=== PATIENT | female | born 1995 | race Caucasian/White ===

== ENCOUNTER → 2020-06-19 08:45 | Outpatient (CLI) | payer SELFPAY | LOC: LAB 08:46 | PROVIDERS: Visit Provider Nurse Practitioner Obstetrics & Gynecology | DX: Z34.90 Encounter for supervision of normal pregnancy, unspecified, unspecified trimester (principal) | CPT/HCPCS: 36415; 84702 ==

== ENCOUNTER → 2020-07-01 10:05 | Outpatient (CLI) | payer OTHER, SELFPAY ==
[2020-07-01 10:35] LABS: Basophils % 0.1 % (0.1-2.0); Eosinophils # 0.1 K/mm3 (0.0-0.4); Eosinophils % 1.3 % (0.1-12.0); Hematocrit 38.5 % (37.0-47.0); Hemoglobin 13.2 g/dL (12.2-16.2); Lymphocytes # 1.9 K/mm3 (0.7-4.5); Lymphocytes % 18.2 % (10-50); Mean Corpuscular HGB Conc 34.2 g/dL (31.8-35.4); Mean Corpuscular Hemoglobin 28.9 pg (27.0-31.2); Mean Corpuscular Volume 84.6 fl (81-99); Mean Platelet Volume 8.1 fl (7.4-10.4); Monocytes # 0.4 K/mm3 (0.1-1.0); Monocytes % 3.7 % (1.7-9.3); Neutrophils # 7.9 K/mm3 (1.8-7.8); Neutrophils % 76.7 % (37.0-80.0); Platelet Count 292 K/mm3 (142-424); Red Blood Count 4.56 M/mm3 (4.20-5.40); Red Cell Distribution Width 13.1 % (11.5-17.5); White Blood Count 10.3 K/mm3 (4.8-10.8)
[2020-07-02 13:54] LABS: HIV Screen 4th Generation wRfx Non Reactive (Non Reactive); Hepatitis B Surface Antigen Negative (Negative); Hepatitis C Antibody <0.1 s/co ratio (0.0-0.9); Rubella Antibodies, IgG 0.99 index (Immune >0.99)
== END ==
PROVIDERS: Visit Provider Nurse Practitioner Obstetrics & Gynecology
DX: Z34.90 Encounter for supervision of normal pregnancy, unspecified, unspecified trimester (principal)
CPT/HCPCS: 36415; 85025; 86592; 86703; 86762; 86850; 87340; 87380; G0432

== ENCOUNTER → 2020-07-08 13:31 | Outpatient (CLI) | payer OTHER, SELFPAY ==
--- NOTE | 2020-07-08 13:31 | US_ITS ---
PROCEDURE: US OB <= 14 WEEKS FETUS CLINICAL INDICATION: for dates Evaluate gestational age COMPARISON: No exams were available for comparison FINDINGS: An intrauterine gestational sac is present with a pole with a crown-rump length of 4.83cm correlating to gestational age of 11weeks 4days. heart tones are present with an FHR of 170bpm. Yolk sac is noted. Unremarkable adnexa IMPRESSION: Live IUP at 11 weeks 4 days. Estimated due date by Ultrasound is 01/23/2021 Dictated by: Prem Gray MD 07/09/2020 13:29 Prem Gray MD in [facility] 07/09/2020 13:29
== END ==
PROVIDERS: PCP Nurse Practitioner Family; Visit Provider Nurse Practitioner Obstetrics & Gynecology
DX: Z34.90 Encounter for supervision of normal pregnancy, unspecified, unspecified trimester (principal)
CPT/HCPCS: 76801

== ENCOUNTER → 2020-07-14 14:33 | Outpatient (CLI) | payer OTHER, SELFPAY ==
[2020-07-17 09:04] LABS: Treponema pallidum Antibodies Reactive (Non Reactive)
== END ==
PROVIDERS: Visit Provider Nurse Practitioner Obstetrics & Gynecology
DX: A53.0 Latent syphilis, unspecified as early or late (principal)
CPT/HCPCS: 36415; 86780

== ENCOUNTER 2020-07-21 15:46 | Outpatient (CLI) | payer OTHER, SELFPAY ==
[2020-07-21 15:57] VITALS: BP 137/69; PULSE 94; RESP 18; TEMP 36.5; O2SAT 99
[2020-07-21 16:22] VITALS: BP 119/66; PULSE 84; RESP 18; O2SAT 99
== END 2020-07-21 16:23 | disposition home or self-care (01) ==
LOC: INF 15:46
PROVIDERS: PCP Nurse Practitioner Family; Visit Provider Nurse Practitioner Obstetrics & Gynecology
DX: Z34.90 Encounter for supervision of normal pregnancy, unspecified, unspecified trimester (principal); A53.0 Latent syphilis, unspecified as early or late
CPT/HCPCS: 96372; J0561

== ENCOUNTER 2020-07-28 15:34 | Outpatient (CLI) | payer OTHER, SELFPAY ==
[2020-07-28 15:45] VITALS: BP 127/61; PULSE 87; RESP 20; TEMP 36.6; O2SAT 97
== END 2020-07-28 16:05 | disposition home or self-care (01) ==
LOC: INF 15:34
PROVIDERS: Visit Provider Nurse Practitioner Obstetrics & Gynecology
DX: Z34.90 Encounter for supervision of normal pregnancy, unspecified, unspecified trimester (principal); A53.0 Latent syphilis, unspecified as early or late
CPT/HCPCS: 96372; J0561

== ENCOUNTER 2020-08-04 14:27 | Outpatient (CLI) | payer OTHER, SELFPAY ==
[2020-08-04 14:58] VITALS: BP 121/57; PULSE 99; RESP 18; TEMP 36.6; O2SAT 100
--- NOTE | 2020-08-04 15:30 | PC.NURSE ---
1458 Bicillin 1,200,000 units IM given L gluteus ninoska and 1,200,000 units IM given R gluteus nionska for total dose received of 2,400,000. Patient tolerated well/denies complaints. 1520 Patient denies complaints or problems. Tolerated well. No s/s of medication reaction or adverse reaction noted.
== END 2020-08-04 15:30 | disposition home or self-care (01) ==
LOC: INF 14:27
PROVIDERS: Visit Provider Nurse Practitioner Obstetrics & Gynecology
DX: Z34.90 Encounter for supervision of normal pregnancy, unspecified, unspecified trimester (principal); A53.0 Latent syphilis, unspecified as early or late
CPT/HCPCS: 96372; J0561

== ENCOUNTER → 2020-08-12 12:37 | Outpatient (CLI) | payer OTHER, SELFPAY ==
[2020-08-14 00:08] LABS: AFP Value 18.6 ng/mL (.); DIA MoM 2.22 (.); DIA Value 305.44 pg/mL (.); DSR (Second Trimester) 1 IN 606 (.); Gest. Age on Collection Date 17.4 WEEKS (.); Maternal Age At EDD 25.7 yr (.); OSBR Risk 1 IN 10000 (.); Results Report (.); hCG MoM 0.74 (.); hCG Value 19027 mIU/mL (.); uE3 MoM 0.39 (.); uE3 Value 0.47 ng/mL (.)
[2020-08-14 11:01] LABS: Gestat. Age Based On EDD (.)
== END ==
PROVIDERS: Visit Provider Nurse Practitioner Obstetrics & Gynecology
DX: Z34.90 Encounter for supervision of normal pregnancy, unspecified, unspecified trimester (principal)
CPT/HCPCS: 36415; 82106

== ENCOUNTER → 2020-09-01 13:43 | Outpatient (CLI) | payer OTHER, SELFPAY ==
--- NOTE | 2020-09-01 13:43 | US_ITS ---
PROCEDURE: US OB /MATERNAL DETAIL Referring Doctor: Rock Josh Patient Age:25Y CLINICAL INDICATION: US OB COMPLETE-20 Week Anatomy Scan COMPARISON: US US OB 07/08/2020.. At which time CRL = 11 weeks 5 days FINDINGS: Single viable intrauterine gestation. Currently in breech position. Placenta: Fundalplacenta wraps posterior to anterior grade 1. There is average amount fluid. The cervix appears satisfactory. Closed and measuring 4.7 in length. Complete survey performed and was unremarkable on the submitted images as in PACS. No discrete anomalies identified on survey imaging by technologist. Active fetus. Three-vessel cord with satisfactory umbilical cord insertion. 4- chamber heart noted. Aortic arch& LVOT image Survey of brain & ventricles Unremarkable. Face and neck survey unremarkable. Diaphragm and chest views unremarkable. Abdomen: Both kidneys noted and unremarkable. Stomach noted and satisfactory. Spine: Survey of the spine satisfactory with no anomalies identified nor imaged. Both arms and legs noted. Appears to be a female fetus Amniotic Fluid: Adequate. Maternal adnexa: No significant findings. Measurements: Average ultrasound age 19weeks 3days. Gestational Age 19weeks 3days Estimated due date by ultrasound age 0501/23/2021. Estimated weight 290ggrams. BPD = 19 week 3 day OFD = 19 week 3 day HC = 18 week 5 day AC = 19 week 4 day. FL = 19 week 4 day Growth Percentile= 38Percent% Heart Rate = 158bpm Cerebellum = 19 week 2 day.. Nuchal fold 1.87 mm Humerus = 19 week 4 day HC/AC is 1.11 CI is 0.8 FL/BPD is 0.69 FL/AC is 0.22 IMPRESSION: Single viable intrauterine gestation; Currently in breech position . Fundal placenta wraps posterior to anterior. Average ultrasound age = 19 weeks 3 day Estimated due date by ultrasound age 0501/23/2021 Anatomical survey-unremarkable/WNL. Active fetus Dictated by: Javed Alexis MD 09/03/2020 12:05 Javed Alexis MD in [facility] 09/03/2020 12:05
== END ==
PROVIDERS: PCP Nurse Practitioner Family; Visit Provider Nurse Practitioner Obstetrics & Gynecology
DX: Z36.0 Encounter for antenatal screening for chromosomal anomalies (principal)
CPT/HCPCS: 76811

== ENCOUNTER → 2020-10-28 10:00 | Outpatient (CLI) | payer OTHER, SELFPAY ==
[2020-10-28 12:47] LABS: Glucose 1 Hour 134 mg/dL (74-100); Glucose,Fasting 93 mg/dl (74-100)
[2020-10-29 14:33] LABS: Rapid Plasma Reagin Ab Titer Non Reactive (NonRea<1:1)
== END ==
PROVIDERS: Visit Provider Nurse Practitioner Obstetrics & Gynecology
DX: Z34.90 Encounter for supervision of normal pregnancy, unspecified, unspecified trimester (principal); Z72.51 High risk heterosexual behavior
CPT/HCPCS: 36415; 82951; 86592

== ENCOUNTER 2020-11-09 17:02 | Outpatient (CLI) | payer OTHER, SELFPAY ==
[2020-11-09 17:17] VITALS: BMI 34.2
[2020-11-09 17:30] LABS: Microscopic, Urine URINE MICROSCOPIC (MICROSCOPIC)
[2020-11-09 17:31] LABS: Appearance,Urine CLEAR (Clear); Bilirubin,Urine Negative (Negative); Blood, Urine Negative (Negative); Color,Urine YELLOW (Yellow); Glucose,Urine (UA) Negative (Negative); Ketones,Urine Negative (Negative); Leukocyte Esterase,Urine Negative (Negative); Nitrate,Urine Negative (Negative); Protein,Urine Negative (Negative); Specific Gravity, Urine >= 1.030 (1.005-1.030); Urobilinogen,Urine 0.2 EU/dl (0.2)
[2020-11-09 17:35] LABS: Squamous Epithelial Cell,Urine 20-50 #/hpf (0-5); WBC,Urine Occasional #/hpf (0-3)
[2020-11-09 17:37] VITALS: BP 119/70; PULSE 100; RESP 16; TEMP 36.9; O2SAT 98; BMI 34.2
[2020-11-09 17:43] LABS: Barbiturates Screen,Urine Negative ng/ml (<200); Benzodiazepines Screen,Urine Negative ng/ml (<200)
[2020-11-09 17:44] LABS: Amphetamine/Metha Screen,Urine Negative ng/ml (<1000); Cannabinoid Screen,Urine Negative ng/ml (<50)
[2020-11-09 17:45] LABS: Cocaine Screen,Urine Negative ng/ml (<300)
[2020-11-09 17:46] LABS: Methadone Screen,Urine Negative ng/ml (<300)
[2020-11-09 17:47] LABS: Opiate Screen,Urine Negative ng/ml (<300); Phencyclidine Screen,Urine Negative ng/ml (<25)
== END 2020-11-09 18:21 | disposition home or self-care (01) ==
LOC: OBOUT 17:05 → OB 17:07
PROVIDERS: PCP Nurse Practitioner Family; Visit Provider Obstetrics & Gynecology
DX: O36.8130 Decreased fetal movements, third trimester, not applicable or unspecified (principal); Z3A.30 30 weeks gestation of pregnancy; W19.XXXA Unspecified fall, initial encounter
CPT/HCPCS: 59025; 80305; 81001; G0463

== ENCOUNTER → 2020-12-24 17:10 | Outpatient (CLI) | payer OTHER, SELFPAY | PROVIDERS: Visit Provider Nurse Practitioner Obstetrics & Gynecology | DX: Z34.90 Encounter for supervision of normal pregnancy, unspecified, unspecified trimester (principal) | CPT/HCPCS: 86403 ==

== ENCOUNTER → 2020-12-30 13:03 | Outpatient (CLI) | payer OTHER, SELFPAY ==
--- NOTE | 2020-12-30 13:03 | US_ITS ---
PROCEDURE: US OB BIOPHYSICAL PROFILE CLINICAL INDICATION: Check Positioning , LGA, Hx of Lg Baby TECHNIQUE: Transabdominal FINDINGS: The following parameters are obtained: Fetus is in breech presentation. Average ultrasound age is Average 36weeks 3days Estimated due date by ultrasound is 01/24/2021. Estimated weight is 2,928g. This is 49th percentile BPD: 36weeks 6days OFD: 36weeks 6days HC: 36 weeks 6 days AC: 36 weeks 3 days FL: 36 weeks 4 days heart rate: 152bpm bpm. HC/AC: 0.98 Cephalic index: 0.81 FL/BPD: 0.79 FL/AC: 0.22 Amniotic fluid index: 18.11cm Qualitative AFV: 2 breathing movements: 2 Gross body movements: 2 Tone: 2 Biophysical profile score: 8 No obvious anomalies evident. Placenta: The placenta is anterior and high and grade 3 Cervix: Closed at 3 cm IMPRESSION: Single live fetus in breech presentation with an average ultrasound age of 36 weeks 3 days with an estimated weight of 2928 g which is 49th percentile. All parameters correlate. CHERYL normal at 18 cm. BPD 8 of 8 Dictated by: Prem Gray MD 12/30/2020 17:16 Prem Gray MD in [facility] 12/30/2020 17:16
== END ==
PROVIDERS: PCP Nurse Practitioner Family; Visit Provider Nurse Practitioner Obstetrics & Gynecology
DX: O32.1XX0 Maternal care for breech presentation, not applicable or unspecified (principal); O36.63X1 Maternal care for excessive fetal growth, third trimester, fetus 1
CPT/HCPCS: 76816; 76819

== ENCOUNTER → 2021-01-11 09:43 | Outpatient (CLI) | payer OTHER, SELFPAY ==
[2021-01-11 10:48] LABS: Chloride 107 mmol/L (98-107)
[2021-01-11 10:49] LABS: Potassium 4.1 mmoL/L (3.5-5.1); Sodium 135 mmol/L (136-145)
[2021-01-11 10:51] LABS: Blood Urea Nitrogen 8 mg/dl (7-17); Estimated Glomerular Filt Rate 150 ml/min (>60); GFR (African American) 182 ML/MIN (>60)
[2021-01-11 10:52] LABS: Anion Gap 11.1 mEq/L (5-15); Calcium 9.5 mg/dl (8.4-10.2); Carbon Dioxide 21 mmol/L (22.0-30.0); Glucose 81 mg/dl (74-100)
[2021-01-11 10:56] LABS: Basophils % 0.3 % (0.1-2.0); Eosinophils # 0.2 K/mm3 (0.0-0.4); Eosinophils % 1.5 % (0.1-12.0); Hematocrit 36.8 % (37.0-47.0); Hemoglobin 11.8 g/dL (12.2-16.2); Lymphocytes # 2.4 K/mm3 (0.7-4.5); Mean Corpuscular HGB Conc 31.9 g/dL (31.8-35.4); Mean Corpuscular Hemoglobin 28.5 pg (27.0-31.2); Mean Corpuscular Volume 89.3 fl (81-99); Mean Platelet Volume 8.6 fl (7.4-10.4); Monocytes # 0.7 K/mm3 (0.1-1.0); Monocytes % 5.4 % (1.7-9.3); Neutrophils # 9.3 K/mm3 (1.8-7.8); Neutrophils % 73.8 % (37.0-80.0); Platelet Count 324 K/mm3 (142-424); Red Blood Count 4.12 M/mm3 (4.20-5.40); Red Cell Distribution Width 14.3 % (11.5-17.5); White Blood Count 12.7 K/mm3 (4.8-10.8)
== END ==
PROVIDERS: PCP Nurse Practitioner Family; Visit Provider Nurse Practitioner Obstetrics & Gynecology
DX: Z34.90 Encounter for supervision of normal pregnancy, unspecified, unspecified trimester (principal)
CPT/HCPCS: 36415; 80048; 85025; U0003

== ENCOUNTER 2021-01-12 05:04 | Inpatient (IN) | payer OTHER, SELFPAY ==
[2021-01-12] VITALS (25 sets, daily range): BP systolic 97–149; BP diastolic 55–94; PULSE 83–114; RESP 16–18; TEMP 36.4–37.7; O2SAT 96–100; BMI 36.1
[2021-01-12 05:57] LABS: Microscopic, Urine URINE MICROSCOPIC (MICROSCOPIC)
[2021-01-12 06:00] LABS: Appearance,Urine SL CLOUDY (Clear); Bilirubin,Urine Negative (Negative); Blood, Urine Negative (Negative); Color,Urine YELLOW (Yellow); Glucose,Urine (UA) Negative (Negative); Ketones,Urine Negative (Negative); Leukocyte Esterase,Urine TRACE (Negative); Nitrate,Urine Negative (Negative); PH,Urine 7.5 (5.0-8.5); Protein,Urine TRACE (Negative); Urobilinogen,Urine 0.2 EU/dl (0.2)
[2021-01-12 06:08] LABS: Bacteria,Urine 2+ /lpf; Squamous Epithelial Cell,Urine TNTC #/hpf (0-5)
[2021-01-12 06:15] LABS: Amphetamine/Metha Screen,Urine Negative ng/ml (<1000)
[2021-01-12 06:16] LABS: Barbiturates Screen,Urine Negative ng/ml (<200); Benzodiazepines Screen,Urine Negative ng/ml (<200)
[2021-01-12 06:17] LABS: Cannabinoid Screen,Urine Negative ng/ml (<50)
[2021-01-12 06:18] LABS: Cocaine Screen,Urine Negative ng/ml (<300)
[2021-01-12 06:19] LABS: Methadone Screen,Urine Negative ng/ml (<300); Opiate Screen,Urine Negative ng/ml (<300)
[2021-01-12 06:20] LABS: Phencyclidine Screen,Urine Negative ng/ml (<25)
--- NOTE | 2021-01-12 07:27 | HMH.OBAPHP ---
OB - H&P: HPI Antepartum - History of Present Illness Chief complaint: Term , breech presentation History of present illness: She is a 25-year-old 2 para 1 at 39+ weeks gestational age. She is known to be in the breech presentation and as result of that is offered primary lower segment transverse section at term. - History of Present Criteria for establishing EDC:: LMP confirmed by 1st trimester US care: good care Ultrasounds: normal 1st trimester US, normal mid trimester US Obstetrical complications: none Medical complications: none - Labs Blood type: A (+) positive Rubella: nonimmune RPR/VDRL: nonreactive GBS status: negative HBsAG: negative [facility] History I have reviewed the patient's past medical history: Yes Medical History: Denies:: Cancer, Diabetes Mellitus Type 1, Diabetes Mellitus Type 2 *Have you ever received a pneumonia vaccine?: No *Have you received a flu vaccine this season?: Yes Laterality Cases: Bilateral: Tonsillectomy Other Surgeries: Yes: Other. No: Amputation: No Fractures: No - *Social History Smoking Status: Current every day smoker Tobacco Type: cigarettes # Packs/Day (cigarettes): 1 Alcohol Intake: never Alcohol Intake Frequency:: other Substance Use Type: marijuana *Occupational Status:: unemployed Housing: house Household Members: family *Travel in the last 8 weeks: None Family Hx:: Diabetes, Hypertension, Hyperlipidemia, Cancer Para: 1 Review of Systems - Review of Systems Review of systems:: pertinent systems reviewed and negative unless documented below Meds Home Medications Medication Instructions Recorded Confirmed Type pantoprazole 40 mg tablet,delayed 40 mg PO DAILY tab 07/14/20 01/08/21 History release PNV 153-FA 400 mcg-om3 35 mg-dha 1 tab PO DAILY #90 tab 07/29/20 01/08/21 Rx 25 mg-epa 5 mg-fish oil chew tablet fluoxetine 20 mg capsule 20 mg PO DAILY #30 cap 09/29/20 01/08/21 Rx famotidine 20 mg tablet 20 mg PO DAILY #30 tab 10/09/20 01/08/21 Rx Ferrous Sulfate 325 mg PO DAILY 11/09/20 01/08/21 History Promethazine HCl See Rx Instructions .ROUTE .COMPLEX 11/09/20 01/08/21 History hydrocortisone 1 %-pramoxine 1 % 1 applic CA QID #10 g 11/11/20 01/08/21 Rx rectal foam cetirizine 10 mg tablet 10 mg PO tab 11/12/20 01/08/21 History doxylamine 10 mg-pyridoxine (vit tab PO 12/24/20 01/08/21 History B6) 10 mg tablet,delayed release Allergies Allergy/AdvReac Type Severity Reaction Status Date / Time orange Allergy Intermediate mouth sores Verified 01/08/21 11:30 Penicillins Allergy Intermediate mouth sores Verified 01/08/21 11:30 OB - H&P: Exam - Physical Exam Vital signs: Temp Pulse Resp BP Pulse Ox 98.2 F 104 H 18 116/72 98 01/12/21 06:10 01/12/21 06:10 01/12/21 06:10 01/12/21 06:10 01/12/21 06:10 - Constitutional no acute distress - Routine HEENT Exam Head: Present: normocephalic Eye: Present: EOMI, PERRL ENT: Present: mucous membranes moist - Routine Neck Exam Present: supple, full ROM - Routine Respiratory Exam Absent: accessory muscle use (good air entry bilaterally), respiratory distress, wheezes, crackles - Routine Cardiovascular Exam Present: RRR. Absent: murmur - Routine Abdominal Exam Present: soft, normoactive bowel sounds. Absent: tenderness, distended, guarding - Routine Rectal Exam Patient deferred: visual exam, digital exam - Routine Exam Patient deferred: external exam, groin exam, perineal exam - Routine Extremities Exam Present: full ROM. Absent: cyanosis, edema - Routine Skin Exam Present: intact. Absent: cyanosis - Routine Neurological Exam Present: alert, oriented X3 - Routine Psychiatric Exam Present: normal affect OB - Results - Labs Labs: Urine 01/12/21 Range/Units 05:20 Urine Color Yellow (Yellow) Urine Appearance Sl cloudy (Clear) Urine pH 7.5 (5.0-8.5) Ur Specific Gr
[2021-01-12 08:02] LABS: Cord Blood PH 7.38 (7.35-7.45)
--- NOTE | 2021-01-12 08:39 | HMH.OPNOTE ---
Date of procedure: 01/12/21 Pre-op Diagnosis:: Term , breech presentation Post-op Diagnosis:: Term , breech presentation Procedure performed:: Primary lower segment transverse section Surgeon:: Josh Rock MD SLEDGER:: Mason Wetzel Anesthesia: spinal Estimated blood loss (mL): 2,170 Clinical Note:: She is a 25-year-old 2 para 1 at 39+ weeks gestational age. She was known to have a baby in the breech presentation and as result of that was offered primary lower segment transverse section at term. Operative findings:: She delivered a liveborn female child at 7:48 AM on the morning of January 12, 2021. The baby had Apgars of 8 at 1 minute and 9 at 5 minutes. pH was 7.38. She had quite large vessels in the lower segment and the lower segment was not fully formed. As result of that she lost more blood than normal. Ovaries and tubes appeared normal. Operative note:: She was taken to the operating room where spinal anesthesia was found be adequate. She was prepped and draped in normal sterile fashion in the supine position with a leftward tilt. A Kelly catheter was in the bladder. A Pfannenstiel skin incision was made with knife then carried through to the underlying layer of fascia with cautery. The fascia was opened in the midline with cautery and extended laterally using [place] scissors. Evette clamps were applied to the superior aspect of the fascial incision which was tented up and the underlying rectus muscles dissected off using cautery. The [place] clamps were then applied to the inferior aspect of the fascial incision which in a similar fashion was tented up and the underlying rectus muscles dissected off using cautery. The rectus muscles were then in the midline, the peritoneum identified, and entered sharply with Metzenbaum scissors. This incision was then extended superiorly and inferiorly with cautery. We had good visualization of the bladder inferiorly. The bladder peritoneum was then opened in the midline and extended laterally using Metzenbaum scissors. A bladder flap was created digitally. Transverse incision was made through the uterine muscle to the amnion. This incision was then extended laterally using fingers traction. The amnion was entered sharply with knife. There was clear amniotic fluid. The infant's breech was then delivered atraumatically. This was followed by the anterior shoulder and the rest of the 's body atraumatically. The oropharynx and nasopharynx were bulb suctioned. The infant was then handed off to Dr. Hernandez who assigned Apgars of 9 at 1 minute and 9 at 5 minutes. We then obtained cord blood as well as cord pH. The pH was 7.38. Using gentle traction on the cord and countertraction on the fundus I was able to easily deliver the placenta intact. It had a normal three-vessel cord. The uterus was then cleared of clots and debris . The uterine incision was then closed using running 0 Vicryl suture in a locked fashion. A second layer of the same suture was used to imbricate the first layer. The bladder peritoneum was then closed using running 2-0 Vicryl suture in a locked fashion. There was some bleeding along the edge of the uterine incision and interrupted [id number] sutures were used here to obtain excellent hemostasis the gutters and cul-de-sac were then cleared of clots and debris . Once again hemostasis was assured. The uterus was then returned to the abdominal cavity. The peritoneum was grasped with Suad clamps and closed using running 2-0 Vicryl suture. The rectus muscles were then reapproximated using running 0 Vicryl suture. The fascia was closed using running #1 Vicryl suture. The subcutaneous tissues were then irrigated with warm water followed by closure Irving's fascia using running 2-0 Monocryl suture. The skin was closed with running subcuticular 2 oh strata fix suture.. I then cleaned the skin with Hibiclens. Sterile dressings were applied.
--- NOTE | 2021-01-12 08:43 | P.PN_ITS ---
[facility] Anesthesia Checklist - Patient Identification Patient Identification: Arm Band - Structural Data Admitted From: Inpatient Planned Operative Procedure/s: Primary C/S Consent for Planned Operative Procedure(s) Verified: Yes Verified Documents: Surgical Consent, History and Physical - NPO Status Verified Time NPO: 00:00 - Additional verifications Anesthesia Reactions: No - Airway Assessment C-Spine Mobility Assessed: Yes (mp2) TMJ Mobility Assessed: Yes Dentition: Good Dentition - Neurological Assessment Level of Consciousness: Awake, Alert - Anesthesia Plan Anesthesia Risk discussed: Yes Anesthesia Plan: Verified ASA Class: II Anesthesia Type: Spinal (with TAP Block) [facility] History I have reviewed the patient's past medical history: Yes Medical History: Denies:: Cancer, Diabetes Mellitus Type 1, Diabetes Mellitus Type 2 *Have you ever received a pneumonia vaccine?: No *Have you received a flu vaccine this season?: Yes Anesthesia experience/problems:: nac Laterality Cases: Bilateral: Tonsillectomy Other Surgeries: Yes: Other. No: Amputation: No Fractures: No - *Social History Smoking Status: Current every day smoker Tobacco Type: cigarettes # Packs/Day (cigarettes): 1 Alcohol Intake: never Alcohol Intake Frequency:: other Substance Use Type: marijuana *Occupational Status:: unemployed Housing: house Household Members: family *Travel in the last 8 weeks: None Family Hx:: Diabetes, Hypertension, Hyperlipidemia, Cancer Para: 1
--- NOTE | 2021-01-12 08:44 | HMH.ANESI ---
[facility] Anesthesia Record Part I Intake, IV Amount: 2,000 Estimated blood loss (mL): 1,800 Urine output (mL): 200 Blood Pressure: 126/90 SaO2: 99 Pulse Rate: 112 Respiratory Rate: 16 Temperature: 99.4 F Patient is:: Drowsy, Stable Stable to PACU at:: 08:30
[2021-01-12 09:04] LABS: Microscopic,Cath URINE MICROSCOPIC (MICROSCOPIC)
[2021-01-12 09:32] LABS: Appearance,Urine/Cath CLEAR (Clear); Bilirubin,Cath Negative (Negative); Blood, Urine/Cath Negative (Negative); Color,Urine/Cath YELLOW (Yellow); Glucose,Urine/Cath (UA) Negative (Negative); Ketones,Urine/Cath Negative (Negative); Leukocyte Esterase,Cath Negative (Negative); Nitrate,Cath Negative (Negative); PH,Urine/Cath 7.5 (5.0-8.5); Protein,Urine/Cath Negative (Negative); Specific Gravity, Urine/Cath 1.015 (1.005-1.030); Urobilinogen,Cath 0.2 EU/dl (0.2)
--- NOTE | 2021-01-12 10:10 | P.PN_ITS ---
[facility] Anesthesia Record Part II Discharge Time: 09:20 Destination: Obstetric PACU nurse assessment reviewed?: Yes Patient Condition:: Good Anesthesia Complications:: None Swallowing reflex intact?: Yes Cyanosis?: No Blood Pressure: 120/69 Pulse Rate: 88 Temperature: 98.2 F Mental Status: Alert & Oriented Pain level:: 0 Nausea and/or vomitting:: None Intake, IV Amount: 0
[2021-01-12 10:20] LABS: Amorphous Sediment,Ur/Cath 1+ /lpf
--- NOTE | 2021-01-12 10:42 | HMH.PHAVTE ---
[facility] Pharmacy VTE Monitoring - Patient Demographics Admission date: 01/12/21 Report Date: 01/12/21 Time: 10:42 Allergies/Adverse Reactions: Patient Allergies orange Allergy (Intermediate, Verified 01/08/21 11:30) mouth sores Penicillins Allergy (Intermediate, Verified 01/08/21 11:30) mouth sores Height: 1.68 m Weight: 101.605 kg Patient Problems: Current Active Problems Breech presentation delivered (Acute) delivery delivered (Acute) - VTE Risk Clinical Trial Participant: No - Prophylaxis VTE Prophylaxis Ordered?: Yes Types of VTE Prophylaxis: IPCS Knee High Location of Applied Device: Bilateral Lower Extremeties
--- NOTE | 2021-01-12 10:53 | SUR.OPER ---
per dr cameron, quantitative blood loss protocol initiated, second 18g IV started, lab alerted to hold 2 units, handed off to continue protocol by NAINA RN in pacu.
[2021-01-12 11:39] LABS: Hematocrit 30.4 % (37.0-47.0); Hemoglobin 10.2 g/dL (12.2-16.2)
[2021-01-12 16:24] LABS: Hematocrit 29.3 % (37.0-47.0)
[2021-01-13] VITALS: BP 116/61; PULSE 86; RESP 17; TEMP 36.8; O2SAT 99
[2021-01-13 04:00] VITALS: BP 110/68; PULSE 89; RESP 18; TEMP 36.7; O2SAT 97
[2021-01-13 06:43] LABS: Basophils % 0.2 % (0.1-2.0); Eosinophils # 0.2 K/mm3 (0.0-0.4); Eosinophils % 1.4 % (0.1-12.0); Hematocrit 26.4 % (37.0-47.0); Lymphocytes # 2.3 K/mm3 (0.7-4.5); Mean Corpuscular Hemoglobin 30.1 pg (27.0-31.2); Mean Corpuscular Volume 88.5 fl (81-99); Monocytes # 0.6 K/mm3 (0.1-1.0); Monocytes % 5.4 % (1.7-9.3); Neutrophils # 8.4 K/mm3 (1.8-7.8); Platelet Count 294 K/mm3 (142-424); Red Blood Count 2.98 M/mm3 (4.20-5.40); Red Cell Distribution Width 14.7 % (11.5-17.5); White Blood Count 11.5 K/mm3 (4.8-10.8)
--- NOTE | 2021-01-13 08:55 | HMH.ACPN2 ---
Internal Medicine - PN: Subj *Date: 01/13/21 *Time: 08:55 Interval history: She is doing very well this morning. She is eating and drinking and ambulating. Her pain is well controlled with the T AP block. She is taking Tylenol and Toradol every 6 hours. She took a couple of oxycodones overnight but otherwise is doing well. I suspect most of her pain is related to visceral pain. Exam Vital signs and Labs for Last 24 Hours: Temp Pulse Resp BP Pulse Ox 98.1 F 89 18 110/68 97 01/13/21 04:00 01/13/21 04:00 01/13/21 04:00 01/13/21 04:00 01/13/21 04:00 Laboratory Results - last 24 hr 01/12/21 05:40: Blood Type A Positive, Antibody Screen Negative, Crossmatch (AHG) See Detail 01/12/21 07:30: Urine Color Yellow, Urine Appearance Clear, Urine pH 7.5, Ur Specific [place] 1.015, Urine Protein Negative, Urine Glucose (UA) Negative, Urine Ketones Negative, Urine Blood Negative, Urine Nitrate Negative, Urine Bilirubin Negative, Urine Urobilinogen 0.2, Ur Leukocyte Esterase Negative, Urine RBC 3-5, Urine WBC None, Ur Squamous Epith Cells 3-5, Urine Bacteria None 01/12/21 11:18: Hgb 10.2 L, Hct 30.4 L 01/12/21 16:12: Hgb 10.0 L, Hct 29.3 L 01/13/21 06:20: WBC 11.5 H, RBC 2.98 L D, Hgb 9.0 L, Hct 26.4 L, MCV 88.5, MCH 30.1, MCHC 34.0, RDW 14.7, Plt Count 294, MPV 9.0, Neut % (Auto) 73.0, Lymph % (Auto) 20.0, [place] % (Auto) 5.4, Eos % (Auto) 1.4, Baso % (Auto) 0.2, Neut # (Auto) 8.4 H, Lymph # (Auto) 2.3, [place] # (Auto) 0.6, Eos # (Auto) 0.2, Baso # (Auto) 0.0 I & O for Last 24 hours: Intake & Output 05/08/01/11/21 01/12/21 01/13/21 11:59 11:59 11:59 11:59 Intake Total 1999 Balance 1999 Weight 224 lb Microbiology Reports for the Last 24 Hours: Microbiology 01/12/21 05:20 Urine,Clean Catch Urine Culture - Preliminary NO GROWTH AFTER 24 HOURS - Constitutional no acute distress - *Routine HEENT Exam Head: Present: normocephalic Eye: Present: EOMI, PERRL ENT: Present: mucous membranes moist Assessment and Plan (1) Breech presentation delivered Status: Acute Category: Medical Code(s): O32.1XX0 - Maternal care for breech presentation, not applicable or unspecified (2) delivery delivered Status: Acute Category: Medical Code(s): O82 - Encounter for delivery without indication - Assessment and plan all Dx Assessment and Plan for all problems:: She is doing very well today. We will likely send her home tomorrow since her pain is so well controlled with a tap block we will continue with regular scheduled oral analgesics.
--- NOTE | 2021-01-13 14:15 | SW/DCPLANNER ---
RECEIVED REFERRAL ON THIS PATIENT STATING FATHER OF IS IN PENITENTIARY, ALSO SOME CONCERNS OVER THE LIVING SITUATION AND CIRCUMSTANCES... I WENT IN TO SEE PATIENT AND INFANT TODAY, INFANT WAS ASLEEP AND PATIENT WAS ON THE PHONE, HER MOTHER WAS AT BEDSIDE ON HER PHONE ALSO...SHE STATED SHE DELIVERED HER INFANT VIA .. SHE DELIVERED A BORN FEMALE AND BOTH PATIENT AND INFANT ARE DOING WELL.. PATIENT STATED SHE HAS A 5 YR OLD DAUGHTER AND SHE NAMED THIS ONE DIANE SUTTON THEY RESIDE IN [facility] WITH THE GRANDMOTHER AND THE PLAN IS TO RETURN BACK THERE ONCE DISCHARGED FROM THE HOSPITAL. HAD BEEN IN AND SAID SHE CAN DISCHARGE IN THE AM (TUE)...SHE HAS CHOSEN DR KING THE BABY'S DOCTOR, SHE DOES HAVE WIC AND WISHES TO USE HANDS, SHE STATED SHE HAD SPOKEN WITH THE HANDS COORDINATOR ON THE PHONE. SHE IS BOTTLE FEEDING AND SAID INFANT IS DOING WELL WITH THE FORMULA. SHE HAS A BASSINETT AND CRIB AND STATED SHE HAS DIAPERS, BOTTLE AND CLOTHING. AT THIS TIME THERE IS NO FATHER INVOLVED.. PATIENT HAS NO DRUG HISTORY TO OUR KNOWLEDGE. BOTH PATIENT AND INFANTS UDS WERE NEGATIVE.. NO ISSUES AT THIS TIME TO INVOLVE ANY INVESTIGATION...
[2021-01-14 08:00] VITALS: BP 112/67; PULSE 92; RESP 18; TEMP 36.9; O2SAT 98
--- NOTE | 2021-01-14 09:32 | HMH.OBDCSM ---
General - General Admission date:: 01/12/21 Discharge date: 01/14/21 HPI - History of Present Illness History of present illness: She is a 25-year-old 2 para 1 at 39 and 2 weeks gestational age. Her baby was in the breech presentation and as result of that she was admitted for primary lower segment transverse section. Hospital Course Hospital Course: On January 12, 2021 she underwent a primary lower segment transverse section and delivered a liveborn female child in the breech presentation. The baby weighed 7 pounds 11 ounces and had Apgars of 8 at 1 minute and 9 at 5 minutes. The age of 7. 3 8. She has done well postoperatively and did have a T AP block. Her pain is well controlled and she is only taken a few pain medicines. She has been taking [id number] analgesics regularly throughout her hospital stay. She has a positive blood, she is rubella nonimmune and will receive MMR. She is group B streptococcus negative. She is discharged home to follow-up with me in approximately 2 weeks time. She will continue with her vitamins and iron. She was given the usual structures with respect to limiting her activity, driving and sexual activity. She was given a prescription for Percocet 5/325 number 12 tablets. Her sewer pipe cleaner is Dr. Hernandez. Her condition on discharge is stable and improved. Rhogam Administration: Not Indicated Objective Vital signs: Temp Pulse Resp BP Pulse Ox 98.1 F 89 18 110/68 97 01/13/21 04:00 01/13/21 04:00 01/13/21 04:00 01/13/21 04:00 01/13/21 04:00 no acute distress - *Routine HEENT Exam Head: Present: normocephalic Eye: Present: EOMI, PERRL ENT: Present: mucous membranes moist Results Labs on day of discharge: Preliminary micro results at discharge 01/12/21 05:20 Urine Culture - Preliminary Urine,Clean Catch DS: Diagnosis - Discharge Diagnosis (1) Breech presentation delivered Status: Acute (2) delivery delivered Status: Acute Discharge Plan - Patient Discharge Instructions ACTIVITY: No heavy lifting DIET: continue same diet Additional Instructions: NOTHING IN VAGINA FOR 6 WEEKS NO HEAVY LIFTING OR STRENUOUS ACTIVITY NO DRIVING WHILE TAKING PAIN MEDICATION FOLLOW-UP WITH DR. ROCK ON Patient Instructions: Depression, Hemorrhage, DI for , Surgical Site Infection, [facility] Post Discharge Instructions, Preventing the Spread of Coronavirus Discharge Instructions - Follow up Plan Follow up with: Josh Rock MD [Staff Physician] - 01/26/21 11:00 am Disposition: Home, Self-Care Condition at discharge:: Improved Home Medications: Home Medications Medication Instructions Recorded Confirmed Type pantoprazole 40 mg tablet,delayed 40 mg PO DAILY tab 07/14/20 01/12/21 History release PNV 153-FA 400 mcg-om3 35 mg-dha 1 tab PO DAILY #90 tab 07/29/20 01/12/21 Rx 25 mg-epa 5 mg-fish oil chew tablet fluoxetine 20 mg capsule 20 mg PO DAILY #30 cap 09/29/20 01/12/21 Rx famotidine 20 mg tablet 20 mg PO DAILY #30 tab 10/09/20 01/12/21 Rx Ferrous Sulfate 325 mg PO DAILY 11/09/20 01/12/21 History Promethazine HCl See Rx Instructions .ROUTE .COMPLEX 11/09/20 01/12/21 History cetirizine 10 mg tablet 10 mg PO DAILY tab 11/12/20 01/12/21 History Prescriptions/Medication Reconciliation: Continued PNV 153-FA 400 mcg-om3 35 mg-dha 25 mg-epa 5 mg-fish oil chew tablet 1 tab PO DAILY #90 tab cetirizine 10 mg tablet 10 mg PO DAILY tab pantoprazole 40 mg tablet,delayed release 40 mg PO DAILY tab fluoxetine 20 mg capsule 20 mg PO DAILY #30 cap famotidine 20 mg tablet 20 mg PO DAILY #30 tab Promethazine HCl See Rx Instructions .ROUTE .COMPLEX Ferrous Sulfate 325 mg PO DAILY - Problem Reconciliation Problems Reviewed?: Yes
== END 2021-01-14 12:35 | disposition home or self-care (01) | DRG 788 ==
PROVIDERS: Admitting Provider Nurse Practitioner Obstetrics & Gynecology; PCP Nurse Practitioner Family; Visit Provider Nurse Practitioner Obstetrics & Gynecology
PROC: (CPT 59514; principal; 2021-01-12 07:30)
DX: O32.1XX0 Maternal care for breech presentation, not applicable or unspecified (principal); Z3A.39 39 weeks gestation of pregnancy; Z37.0 Single live birth; Z23 Encounter for immunization
CPT/HCPCS: 59514; 36415; 59025; 80048; 80305; 81001; 82800; 85014; 85018; 85025; 86850; 87086; 94761; C9290; G0283; J1956; J2405; U0003

== ENCOUNTER 2021-04-29 20:55 | Emergency (ER) | payer OTHER, SELFPAY ==
[2021-04-29 22:00] VITALS: BP 130/74; PULSE 96; RESP 18; TEMP 36.9; O2SAT 97; BMI 35.6
--- NOTE | 2021-04-29 22:12 | HMH.EDUTC ---
[facility] [place] Impression: UTI (urinary tract infection) Qualifiers: Urinary tract infection type: site unspecified Hematuria presence: with hematuria Qualified Code(s): N39.0 - Urinary tract infection, site not specified; R31.9 - Hematuria, unspecified Disposition: Home, Self-Care Condition on Discharge: Good Instructions: Urinary Tract Infection, DI for Urinary Tract Infection (UTI), Nitrofurantoin Additional Instructions: *Increase fluids. Water not Soda or Tea *Start antibiotic immediately and be sure to take as ordered for the FULL length of time although you should start to see improvement over the next 48 hours Be SURE to follow up anytime for new or worsening symptoms with your family doctor. AND in 48 hours for urine culture results with your family doctor, if you do not have a doctor then you may call back to the [facility] for urine culture results and further treatment. We do recommend that you choose and establish care with a Primary Care Physician. AND follow up with them in 10-14 days to repeat UA to ensure infection is resolved and blood no longer present *Be sure to let your PCP know that we sent urine cultures from the [facility] so they can follow up to ensure that you area the on the correct antibiotic Call your doctor office and make appointment for 48 hours (2 days from today) to follow up and get the results of your urine culture and further treatment Prescriptions: Nitrofurantoin Monohyd/M-Cryst [Macrobid 100 mg Capsule] 100 mg PO BID 7 Days #14 cap Transmission Status: Pending to [id number] Referrals: Renea Atwood PA [Primary Care Provider] - As needed Time of Disposition: 22:25 Medical Decision Making - Rene Inquiry Pt receiving controlled substance: No Rene was queried for this patient: No Vital Signs: 04/29/21 22:00 Temperature 98.4 F Temperature Source Oral Pulse Rate [Left] 96 H Respiratory Rate 18 Blood Pressure [Right Arm] 130/74 Blood Pressure Mean [Right Arm] 92 02 Sat by Pulse Oximetry 97 - Lab Data Lab results reviewed: Yes: I reviewed the patient's lab results. Medical Decision Narrative: Denies breast feeding [facility] [place] - General Stated complaint: Possible UTI Time Seen by Provider: 04/29/21 22:12 Mode of Arrival: Ambulatory Source of Information: Patient Limitations: No Limitations Description of Symptoms (Recalled from Triage Doc. by RN): pt c/o middle back pain and bilateral flank pain. pt is 3 months post HEENT Symptoms (Recalled from RN notes): No Resp Symptoms (Recalled from RN notes): No Skin Symptoms (Recalled from RN notes): No MS Symptoms (Recalled from RN notes): Yes (mid back and flank pain) Functional Status (Recalled from RN notes): na - History of Present Illness Provider Complaint: Patient states that she has been having achy like feeling in her lower back around her kidney area and feeling like she was urinating more frequently than usual State that she feels like she did when she had UTI in the past with achy like feeling in her back and side area - Related Data Home Medications Medication Instructions Recorded Confirmed pantoprazole 40 mg tablet,delayed 40 mg PO DAILY tab 07/14/20 02/24/21 release cetirizine 10 mg tablet 10 mg PO DAILY tab 11/12/20 02/24/21 Previous Rx's Medication Instructions Recorded PNV 153-FA 400 mcg-om3 35 mg-dha 1 tab PO DAILY #90 tab 07/29/20 25 mg-epa 5 mg-fish oil chew tablet fluoxetine 20 mg capsule 20 mg PO DAILY #30 cap 09/29/20 terconazole 0.8 % vaginal cream 5 g VAGINAL HS 3 Days #20 g 02/13/21 Nitrofurantoin Monohyd/M-Cryst 100 mg PO BID 7 Days #14 cap 04/29/21 [Macrobid 100 mg Capsule] Allergies Allergy/AdvReac Type Severity Reaction Status Date / Time orange Allergy Intermediate mouth sores Verified 02/24/21 10:41 Penicillins Allergy Intermediate mouth sores Verified 02/24/21 10:41 - Worker's Comp Is this a Worker's Comp case?: No H History
[2021-04-29 22:17] VITALS: BP 130/74; PULSE 96; RESP 18; TEMP 36.9
[2021-04-29 22:30] LABS: Apearance,Urine Clear (Clear); Bilirubin,Urine Negative (Negative); Blood, Urine Trace (Negative); Color,Urine Yellow (Yellow); Glucose,Urine (UA) Negative (Negative); Ketones,Urine Negative (Negative); Protein,Urine Negative (Negative); Specific Gravity, Urine 1.025 (1.005-1.030); UTC Leukocyte Esterase,Urine 1+ (Negative); UTC Nitrate,Urine Negative (Negative); Urobilinogen,Urine 0.2 EU/dl (0.2)
== END 2021-04-29 22:41 | disposition home or self-care (01) ==
PROVIDERS: Emergency Provider Nurse Practitioner; PCP Nurse Practitioner Family
DX: N30.00 Acute cystitis without hematuria (principal); Z87.891 Personal history of nicotine dependence
CPT/HCPCS: 81003; 87086; 87088; 87186; 99202; G0463

== ENCOUNTER 2021-05-19 19:41 | Emergency (ER) | payer OTHER, SELFPAY ==
[2021-05-19 20:30] VITALS: BP 134/66; PULSE 86; RESP 20; TEMP 36.7; O2SAT 99; BMI 36.7
--- NOTE | 2021-05-19 21:18 | HMH.EDUTC ---
[facility] [place] Clinical Impression: Exposure to COVID-19 virus Disposition: Home, Self-Care Condition on Discharge: Good Instructions: DI for COVID-19 (Suspected or Confirmed ), Preventing the Spread of Coronavirus Discharge Instructions Additional Instructions: Drink plenty of fluids. Take tylenol for pain or fever. Return if you begin to have difficulty breathing. Follow up with your regular doctor. GO TO THE ER FOR ANY WORSENING SYMPTOMS Quarantine until you know the results of your covid-19 test. If it is positive, the health department should call you and give you further instructions about your length of Quarantine and other things. Notify your school or workplace of your results and follow their instructions regarding return to work/school. Referrals: Renea Atwood PA [Primary Care Provider] - Time of Disposition: 21:18 Medical Decision Making - Medical Records Medical records reviewed: No: I reviewed the patient's medical records. - Rene Inquiry Pt receiving controlled substance: No Vital Signs: 05/19/21 20:30 05/19/21 21:24 Temperature 98.1 F 98.1 F Temperature Source Oral Pulse Rate 86 Pulse Rate [Right Brachial] 86 Respiratory Rate 20 20 Blood Pressure 134/66 Blood Pressure [Right Arm] 134/66 Blood Pressure Mean [Right Arm] 88 Blood Pressure Source [Right Arm] Automatic Cuff Blood Pressure Position [Right Arm] Sitting 02 Sat by Pulse Oximetry 99 Oxygen Delivery Method Room Air Orders (Tests/Meds): ORDERS Category Date Time Status Covid-19 Nasal PCR ([facility]) Routine Lab 05/19/21 20:40 Received [facility] [place]PI - General Stated complaint: covid test Time Seen by Provider: 05/19/21 21:18 Mode of Arrival: Ambulatory Source of Information: Patient Limitations: No Limitations Description of Symptoms (Recalled from Triage Doc. by RN): COVID TEST D/T EXPOSURE. DENIES SYMPTOMS HEENT Symptoms (Recalled from RN notes): No Resp Symptoms (Recalled from RN notes): No Skin Symptoms (Recalled from RN notes): No MS Symptoms (Recalled from RN notes): No Functional Status (Recalled from RN notes): WNL - History of Present Illness Provider Complaint: She has been exposed to covid in her house, beginning around 5 days ago. - Related Data Home Medications Medication Instructions Recorded Confirmed pantoprazole 40 mg tablet,delayed 40 mg PO DAILY tab 07/14/20 02/24/21 release cetirizine 10 mg tablet 10 mg PO DAILY tab 11/12/20 02/24/21 Previous Rx's Medication Instructions Recorded PNV 153-FA 400 mcg-om3 35 mg-dha 1 tab PO DAILY #90 tab 07/29/20 25 mg-epa 5 mg-fish oil chew tablet fluoxetine 20 mg capsule 20 mg PO DAILY #30 cap 09/29/20 terconazole 0.8 % vaginal cream 5 g VAGINAL HS 3 Days #20 g 02/13/21 Nitrofurantoin Monohyd/M-Cryst 100 mg PO BID 7 Days #14 cap 04/29/21 [Macrobid 100 mg Capsule] Allergies Allergy/AdvReac Type Severity Reaction Status Date / Time orange Allergy Intermediate mouth sores Verified 02/24/21 10:41 Penicillins Allergy Intermediate mouth sores Verified 02/24/21 10:41 - Worker's Comp Is this a Worker's Comp case?: No [facility] History - Hepatitis A Screen Drug use history?: No High risk sexual behaviors?: No History of sexually transmitted infection?: No Currently employed?: No Childcare worker?: No Do you have indoor plumbing?: Yes Do you have electricity?: Yes Attestation statement:: This patient has been screened for Hepatitis A risk factors. I have reviewed the patient's past medical history: Yes Medical History: Denies:: Cancer, Diabetes Mellitus Type 1, Diabetes Mellitus Type 2 Laterality Cases: Bilateral: Tonsillectomy Other Surgeries: Yes: , Other Amputation: No Fractures: No Comment: Top 2 wisdom teeth extracted - Social History Smoking Status: Former smoker Tobacco Type: cigarettes # Packs/Day (cigarettes): 1 Alcohol Intake: never Alcohol Intake Frequency:: other Substance
[2021-05-19 21:24] VITALS: BP 134/66; PULSE 86; RESP 20; TEMP 36.7; O2SAT 99
== END 2021-05-19 21:25 | disposition home or self-care (01) ==
PROVIDERS: Emergency Provider Nurse Practitioner Family; PCP Nurse Practitioner Family
DX: Z20.822 Contact with and (suspected) exposure to COVID-19 (principal)
CPT/HCPCS: 99202; C9803; G0463; U0003; U0005

== ENCOUNTER 2021-07-02 18:41 | Emergency (ER) | payer OTHER, SELFPAY ==
[2021-07-02 20:04] VITALS: BP 111/74; PULSE 101; RESP 20; TEMP 36.9; O2SAT 99; BMI 34.3
[2021-07-02 20:19] LABS: UTC Strep Screen (Rapid) Negative (Negative)
--- NOTE | 2021-07-02 20:35 | HMH.EDUTC ---
[facility] [place] Dis[place] Clinical Impression: URI with cough and congestion Disposition: Home, Self-Care Condition on Discharge: Good Instructions: Sore Throat, Cough, Benzonatate, DI for COVID-19 (Suspected or Confirmed ) Additional Instructions: *Monitor Temp, Over the counter Motrin or Tylenol as directed/as needed Tylenol every 4 hours and Motrin every 6 hours (as long as your family doctor has told you that you can take it) for fever or pain. and straight to ER if unable to lower temp less than 101.0 after medication given *Warm salt water gargles may help to soothe the throat *Throat Lozenges *Warm fluids like tea with honey may help to soothe the throat *Sleep elevated *Humidifier/Vaporizer *Flonase 2 sprays in each nostril daily but be aware that it may take 2-3 days before you notice improvement Your throat swab was sent for culture. Those results are typically sent to your primary care. Be sure to follow up in 2-3 days with your family doctor/primary care physician if no improvement so they can review those result and treat if necessary. If you don?t have a primary care doctor, I recommend you get one but in the mean time, you will have to return to a walk in clinic Follow up IMMEDIATELY for new or worsening symptoms or no Noticeable improvement over the next 48-72 hours. 911 for difficulty breathing or swallowing You were tested for today for COVID19 your test result should be back in the next 24-48 hours, you may check your results online at the [facility] if you have trouble accessing your results you may call the [facility] You was given a handout with instructions for Self Quarantine and Self isolation for while you wait on test results and what to do if they are positive If you are positive the Health Dept will be contacting you also Make sure to take your Vitamins Vit. C Vit D and Zinc if you can take them Prescriptions: Fluticasone Propionate [Flonase 50mcg nasal spray 16gm] 1 spr NS DAILY #1 each [facility] methylPREDNISolone [Medrol 4mg tab] 4 mg PO DIRECTED #21 tab Transmission Status: Pending to [facility] 493 Benzonatate [Tessalon Perle 100mg Cap*] 100 mg PO TID PRN #15 cap PRN Reason: Cough Transmission Status: Pending to [facility] 493 Referrals: Renea Atwood PA [Primary Care Provider] - As needed Forms: Work/School Release Time of Disposition: 20:52 Medical Decision Making - Rene Inquiry Pt receiving controlled substance: No Rene was queried for this patient: No Vital Signs: 07/02/21 20:04 07/02/21 20:43 Temperature 98.4 F 98.4 F Temperature Source Oral Pulse Rate 101 H Pulse Rate [Left] 101 H Respiratory Rate 20 20 Blood Pressure 111/74 Blood Pressure [Right Arm] 111/74 Blood Pressure Mean [Right Arm] 86 02 Sat by Pulse Oximetry 99 - Lab Data Lab Results 07/02/21 20:09: Strep Scn Rapid Clinic Negative 07/02/21 20:09: Tst Clinic Negative Orders (Tests/Meds): ORDERS Category Date Time Status Covid-19 Nasal PCR ([facility]) Routine Lab 07/02/21 20:08 Received Strep Screen Confirmation Stat Micro 07/02/21 20:09 Received [facility] UTC HPI - General Stated complaint: cough,SOB,Congestion Time Seen by Provider: 07/02/21 20:36 Mode of Arrival: Ambulatory Source of Information: Patient Limitations: No Limitations Description of Symptoms (Recalled from Triage Doc. by RN): pt c/o cough, runny nose, diarrhea, body aches, soa, and congestion since yesterday. HEENT Symptoms (Recalled from RN notes): Yes (runny nose and congestion) Resp Symptoms (Recalled from RN notes): Yes (cough and soa) Skin Symptoms (Recalled from RN notes): No MS Symptoms (Recalled from RN notes): No Functional Status (Recalled from RN notes): na - History of Present Illness Provider Complaint: Patient states that she has not been feeling well for several days but got worse yesterday State that she has been having diarrhea, cough,
[2021-07-02 20:36] LABS: UTC Pregnancy Test, Urine Negative (Negative)
[2021-07-02 20:43] VITALS: BP 111/74; PULSE 101; RESP 20; TEMP 36.9
== END 2021-07-02 21:11 | disposition home or self-care (01) ==
PROVIDERS: Emergency Provider Nurse Practitioner; PCP Nurse Practitioner Family
DX: J06.9 Acute upper respiratory infection, unspecified (principal); Z20.822 Contact with and (suspected) exposure to COVID-19
CPT/HCPCS: 81025; 87880; 99203; C9803; G0463; U0003; U0005

== ENCOUNTER 2022-08-03 18:19 | Emergency (ER) | payer OTHER, SELFPAY ==
--- NOTE | 2022-08-03 20:11 | EXP.UTC ---
Discharge Plan Disposition Patient Disposition: Home, Self-Care Condition: Good Prescriptions Prescriptions: New benzonatate [benzonatate] 100 mg capsule 100 mg PO TIDP PRN (Reason: Cough) Qty: 30 0RF methylprednisolone 4 mg Tablets,Dose Pack 4 mg PO DIRECTED Qty: 21 0RF Paxlovid (EUA) 300 mg (150 mg x 2)-100 mg tablet See Rx Instructions .ROUTE .COMPLEX Qty: 30 0RF Rx Instructions: take TWO 150 mg tablets of nirmatrelvir with ONE 100 mg tablet of ritonavir twice daily for 5 days Discontinued nitrofurantoin monohyd/m-cryst 100 MG capsule 100 mg PO BID 7 Days Qty: 14 0RF No Action terconazole 0.8 % cream 5 g VAGINAL HS 3 Days Qty: 20 0RF Rx Instructions: apply as directed Gummies 400 mcg-35 mg- 25 mg-5 mg tablet,chewable 1 tab PO DAILY Qty: 90 3RF pantoprazole 40 mg tablet,delayed release (DR/EC) 40 mg PO DAILY Label Comments: TAKE 1 TABLET BY MOUTH ONCE DAILY cetirizine 10 mg tablet 10 mg PO DAILY Label Comments: TAKE 1 TABLET BY MOUTH ONCE DAILY fluoxetine 20 mg capsule 20 mg PO DAILY Qty: 30 11RF famotidine 20 mg tablet See Rx Instructions .ROUTE .COMPLEX Qty: 30 6RF Dose Instruction: Take 1 tablet by mouth once daily Rx Instructions: Take 1 tablet by mouth once daily methylprednisolone 4 MG tablet 4 mg PO DIRECTED Qty: 21 0RF Rx Instructions: Take as directed on package instructions benzonatate 100 MG capsule 100 mg PO TID PRN (Reason: Cough) Qty: 15 0RF fluticasone propionate 120 SPR/BOT bottle 1 spr intranasal DAILY Qty: 1 0RF Rx Instructions: One spray in each nostril daily Referrals Follow up/Referrals: Michael Peña APRN [Primary Care Provider] - See instructions Activity Restrictions/Add. Instructions Additional Instructions/Restrictions: Drink plenty of fluids. Take tylenol or ibuprofen for pain or fever. Take the medications as directed. Follow up with your regular doctor. GO TO THE ER FOR ANY WORSENING SYMPTOMS Quarantine until you know the results of your covid-19 test. Notify your school or workplace of your results and follow their instructions regarding return to work/school. Clinical Impressions Clinical Impression: COVID-19 Stand Alone Forms Stand Alone Forms: Work/School Release Instructions Patient Instructions: Coronavirus Disease 2019, Preventing the Spread of Coronavirus Discharge Instructions Discharge ED [place] Pablo [place] [facility] [place] General Stated complaint: Covid +,SOA,Cough,Vomiting,Diarrhea,Body aches Time Seen by Provider: 08/03/22 20:10 History of Present Illness Provider Complaint: She started feeling bad yesterday. She has had fever, chills, body aches, cough, sore throat and malaise. She tested positive on a home covid-19 test today. Related Data Home Medications Medication Instructions Recorded Confirmed pantoprazole 40 mg tablet,delayed 40 mg PO DAILY acid reflux 07/14/20 04/28/22 release cetirizine 10 mg tablet 10 mg PO DAILY allergies 11/12/20 04/28/22 Previous Rx's Medication Instructions Recorded PNV 153-FA 400 mcg-om3 35 mg-dha 1 tab PO DAILY Supplement #90 tabs 07/29/20 25 mg-epa 5 mg-fish oil chew tablet ( Gummies) fluoxetine 20 mg capsule 20 mg PO DAILY Depression #30 caps 09/29/20 terconazole 0.8 % vaginal cream 5 g vaginal HS 3 days #20 grams 02/13/21 benzonatate 100 mg capsule 100 mg PO TID PRN Cough #15 caps 07/02/21 fluticasone propionate 50 1 spr intranasal DAILY #1 ea 07/02/21 mcg/actuation nasal spray,suspension methylprednisolone 4 mg tablet 4 mg PO DIRECTED #21 tabs 07/02/21 famotidine 20 mg tablet See Rx Instructions .Route 02/09/22 .COMPLEX #30 tabs benzonatate 100 mg capsule 100 mg PO TIDP PRN Cough #30 caps 08/03/22 methylprednisolone 4 mg tablets in 4 mg PO DIRECTED #21 tabs 08/03/22 a dose pack nirmatrelvir 300 mg (150 mg See Rx
[2022-08-03 20:30] VITALS: BP 132/93; PULSE 111; RESP 18; TEMP 37.2; O2SAT 98; BMI 34.7
[2022-08-03 20:55] VITALS: BP 132/93; PULSE 111; RESP 18; TEMP 37.2
== END 2022-08-03 21:05 | disposition home or self-care (01) ==
PROVIDERS: Emergency Provider Nurse Practitioner Family; PCP Nurse Practitioner Family
DX: U07.1 COVID-19; J02.9 Acute pharyngitis, unspecified; R50.9 Fever, unspecified; R05.9 Cough, unspecified; R53.81 Other malaise; M19.90 Unspecified osteoarthritis, unspecified site; F32.A Depression, unspecified; F41.9 Anxiety disorder, unspecified; Z79.51 Long term (current) use of inhaled steroids; Z79.899 Other long term (current) drug therapy; Z88.0 Allergy status to penicillin; Z91.018 Allergy to other foods; Z87.891 Personal history of nicotine dependence
CPT/HCPCS: 99213; C9803; G0463; U0003; U0005

== ENCOUNTER 2025-02-18 19:58 | Emergency (ER) | payer OTHER, SELFPAY ==
--- OUTSIDE RECORDS SUMMARY | 2025-02-18 20:20 | XMS_ITS | Data Portability ---
Author Organization [place] - [place] [facility] Address [address] [place] [address] Assessment Encounter Date Assessment Date Assessment LastModified by Organization Details LastModified Time 12/20/2022 12/20/2022 patient does hav e a 17 % ejection fraction of the gallbladder per HIDA scan CCK. working diagnosis of gallbladder dyskinesia. Plan is for laparoscopic cholecystectomy possible open procedure no need for cholangiogram at this time. See discussion notes below [email or web address] Not available 12/20/2022 09:58:05 01/10/2023 01/10/2023 Patient doing we ll plan is to see her next week for removal of the wade. Instructions given. [email or web address] Not available 01/10/2023 09:44:39 01/17/2023 01/17/2023 patient's incisions healing remarkably well wade were removed and Steri-Strips were placed using Mastisol also. Plan is to see the patient on a p.r.n. basis And instructions were given on wound care. [email or web address] Not available 01/17/2023 11:36:16 Plan of Treatment Reminders Order Date Submit Date Provider Last Modified By Organization Details Last Modified Time Details Appointments None recorded. Lab CMP, serum or plasma 2022 023 [facility] (Laboratory), [address] [place], [address], 3 17:08:16 CBC w/ auto diff 2022 023 [facility] (Laboratory), [address] [place], [address], 3 16:45:35 lipid panel, serum 2022 023 [facility] (Laboratory), [address] [place], [address], 3 17:08:18 TSH, serum or plasma 2022 023 [facility] (Laboratory), [address] [place], [address], 3 17:08:14 HbA1c (hemoglobi n A1c), blood 2022 023 [facility] (Laboratory), [address] [place], [address], 3 17:08:20 Referral None recorded. Procedures None recorded. Surgeries None recorded. Imaging NM, hepatobili aria scan, w/ CCK 2022 023 [facility] Centralized Scheduling, [address] [place], [address], 3 08:49:38 Medication Orders famotidine 20 mg tablet 2022 023 [facility], [address] [place] [address], [address], 3 12:02:04 hydroxyzin e HCl 50 mg tablet 2022 023 [facility], [address] [place], [address], 3 11:58:04 fluoxetine 20 mg capsule 2022 023 [facility], [address] [place], [address], 3 11:58:02 lamotrigin e 25 mg tablet 2022 023 [facility], [address] [place], [address], 11:58:04 Patient TargetsNo targets recorded. Patient Instructions Encounter Date Encounter Id Patient Instructions Last Modified By Organization Details Last Modified Time 12/20/2022 [id number] the patient does have complaints of diarrhea once she eats. I told her and her that removing her gallbladder not necessarily would take care of the problem with the diarrhea. This may need further workup. She understands all the possible complications of open procedure bleeding perforations bile duct injuries infections. They understand and the patient is wants to proceed with the surgery whenever we can get her on the schedule. She will work with her job scheduling so she can have the surgery. [email or web address] Not available 12/20/2022 10:00:14 Reason for Referral None Reported. Results Created Date Observation Date Name Description Value Unit Range Abnormal Flag Note LastModifiedBy Organization Detail LastModifiedTime 12/02/19 23 12/01/2022 CBC AUTO W DIFF WBC 11.3 10 4.5-11 .5 Not Available [facility] (Lab Registration) [address] [place], [address], 12/01/2022 16:45:35 12/02/19 23 12/01/2022 CBC AUTO W DIFF RBC 5.11 10 4.25-5 .57 Not Available [facility] (Lab Registration) [address] [place], [address], 12/01/2022 16:45:35 12/02/19 23 12/01/2022 CBC AUTO W DIFF HGB 14.3 g/dL 12.0-1 5.7 Not Available [facility] (Lab Registration) [address] [place], [address], 12/01/2022 16:45:35 12/02/19 23 12/01/2022 CBC AUTO W DIFF HCT 42.1 % 36.0-4 7.0 Not Available [facility] (Lab Registration) [address] [place], [address], 12/01/2022 16:45:35 12/02/19 23 12/01/2022 CBC AUTO W DIFF MCV 82.4 fL 80-95 Not Available [facility] (Lab Registration) [address] [place], [address], 12/01/2022 16:45:35 12/02/19 23 12/01/2022 CBC AUTO W DIFF MCH 28.0 pg 27.0-3 4.0 Not Available [facility] (Lab Registration) [address] [place], [address], 12/01/2022 16:45:35 12/02/19 23 12/01/2022 CBC AUTO W DIFF MCHC 34.0 g/dL 32.0-3 6.0 Not Available [facility] (Lab Registration) [address] [place], [address], 12/01/2022 16:45:35 12/02/19 23 12/01/2022 CBC AUTO W DIFF platelet count 402 10 150-45 0 Not Available [facility] (Lab Registration) [address] [place], [address], 12/01/2022 16:45:35 12/02/19 23 12/01/2022 CBC AUTO W DIFF RDW 13.0 % 12.3-1 5.1 Not Available [facility] (Lab Registration) [address] [place], [address], 12/01/2022 16:45:35 12/02/19 23 12/01/2022 CBC AUTO W DIFF MPV 11.2 fL 7.4-10 .4 high Not Available [facility] (Lab Registration) [address] [place], [address], 12/01/2022 16:45:35 12/02/19 23 12/01/2022 CBC AUTO W DIFF granulocyte% 62.2 % 40-75 Not Available [facility] (Lab Registration) [address] [place], [address], 12/01/2022 16:45:35 12/02/19 23 12/01/2022 CBC AUTO W DIFF lymphocyte% 29.7 % 15-57 Not Available [facility] (Lab Registration) [address] [place], [address], 12/01/2022 16:45:35 12/02/19 23 12/01/2022 CBC AUTO W DIFF monocyte% 4.5 % 4.0-12 .0 Not Available [facility] (Lab Registration) [address] [place], [address], 12/01/2022 16:45:35 12/02/19 23 12/01/2022 CBC AUTO W DIFF eosinophil% 2.8 % 0.0-4. 0 Not Available [facility] (Lab Registration) [address] [place], [address], 12/01/2022 16:45:35 12/02/19 23 12/01/2022 CBC AUTO W DIFF basophil% 0.5 % 0.0-1. 0 Not Available [facility] (Lab Registration) [address] [place], [address], 12/01/2022 16:45:35 12/02/19 23 12/01/2022 CBC AUTO W DIFF immature granulocytes % 0.3 % 0.0-0. 8 Not Available [facility] (Lab Registration) [address] [place], [address], 12/01/2022 16:45:35 12/02/19 23 12/01/2022 CBC AUTO W DIFF granulocyte# 7.02 10 Not Available [facility] (Lab Registration) [address] [place], [address], 12/01/2022 16:45:35 12/02/19 23 12/01/2022 CBC AUTO W DIFF lymphocyte# 3.36 10 Not Available [facility] (Lab Registration) [address] [place], [address], 12/01/2022 16:45:35 12/02/19 23 12/01/2022 CBC AUTO W DIFF monocyte# 0.51 10 Not Available [facility] (Lab Registration) [address], [place], [address], 12/01/2022 16:45:35 12/02/19 23 12/01/2022 CBC AUTO W DIFF eosinophil# 0.32 10 Not Available [facility] (Lab Registration) [address] [place], [address], 12/01/2022 16:45:35 12/02/19 23 12/01/2022 CBC AUTO W DIFF basophil# 0.06 10 Not Available [facility] (Lab Registration) [address] [place], [address], 12/01/2022 16:45:35 12/02/19 23 12/01/2022 CBC AUTO W DIFF immature granulocytes # 0.03 10 Not Available [facility] (Lab Registration) [address] [place], [address], 12/01/2022 16:45:35 12/02/19 23 12/01/2022 CBC AUTO W DIFF manual differential NO Not Available [facility] (Lab Registration) [address], [place], [address], 12/01/2022 16:45:35 12/02/19 23 12/01/2022 CBC AUTO W DIFF note Unles s other wilson noted testi ng perfo rmed at: [facility] [address] [place] [address] [phone] Pedro rees MD CLIA: [id number] Not Available [facility] (Lab Registration) [address] [place], [address], 12/01/2022 16:45:35 12/02/19 23 12/01/2022 THYRO ID STIMU LATIN G HORMO NE thyroid stimulating hormone 0.39 mIU/m L 0.34-4 .80 Not Available [facility] (Lab Registration) [address] [place], [address], 12/01/2022 17:08:14 12/02/19 23 12/01/2022 THYRO ID STIMU LATIN G HORMO NE note Unles s other wilson noted testi ng perfo rmed at: [facility] [address] [place] [address] [phone] Pedro rees MD CLIA: [id number] Not Available [facility] (Lab Registration) [address], [place], [address], 12/01/2022 17:08:14 12/02/19 23 12/01/2022 COMP METAB OLIC PANEL sodium 139 mmol/ L 136-14 5 Not Available [facility] (Lab Registration) [address], [place], [address], 12/01/2022 17:08:16 12/02/19 23 12/01/2022 COMP METAB OLIC PANEL potassium 4.1 mmol/ L 3.5-5. 1 Not Available [facility] (Lab Registration) [address] [place], [address], 12/01/2022 17:08:16 12/02/19 23 12/01/2022 COMP METAB OLIC PANEL chloride 105 mmol/ L 98-107 Not Available [facility] (Lab Registration) [address] [place], [address], 12/01/2022 17:08:16 12/02/19 23 12/01/2022 COMP METAB OLIC PANEL carbon dioxide 26 mmol/ L 21-32 Not Available [facility] (Lab Registration) [address] [place], [address], 12/01/2022 17:08:16 12/02/19 23 12/01/2022 COMP METAB OLIC PANEL anion gap 8.0 Not Available [facility] (Lab Registration) [address] [place], [address], 12/01/2022 17:08:16 12/02/19 23 12/01/2022 COMP METAB OLIC PANEL glucose 86 mg/dL 70-110 Not Available [facility] (Lab Registration) [address] [place], [address], 12/01/2022 17:08:16 12/02/19 23 12/01/2022 COMP METAB OLIC PANEL blood urea nitrogen 6 mg/dL 7-18 low Not Available [facility] (Lab Registration) [address] [place], [address], 12/01/2022 17:08:16 12/02/19 23 12/01/2022 COMP METAB OLIC PANEL creatinine 0.8 mg/dL 0.6-1. 0 Not Available [facility] (Lab Registration) [address] [place], [address], 12/01/2022 17:08:16 12/02/19 23 12/01/2022 COMP METAB OLIC PANEL BUN/creatini ne ratio 7.5 ratio 9-21 low Not Available [facility] (Lab Registration) [address] [place], [address], 12/01/2022 17:08:16 12/02/19 23 12/01/2022 COMP METAB OLIC PANEL estimated glom filtration rate 91 mL/mi n >60- Not Available [facility] (Lab Registration) [address] [place], [address], 12/01/2022 17:08:16 12/02/19 23 12/01/2022 COMP METAB OLIC PANEL total protein 7.3 g/dL 6.4-8. 2 Not Available [facility] (Lab Registration) [address] [place], [address], 12/01/2022 17:08:16 12/02/19 23 12/01/2022 COMP METAB OLIC PANEL albumin 3.9 g/dL 3.4-5. 0 Not Available [facility] (Lab Registration) [address] [place], [address], 12/01/2022 17:08:16 12/02/19 23 12/01/2022 COMP METAB OLIC PANEL calcium 9.0 mg/dL 8.5-10 .1 Not Available [facility] (Lab Registration) [address] [place], [address], 12/01/2022 17:08:16 12/02/19 23 12/01/2022 COMP METAB OLIC PANEL corrected calcium 9.1 mg/dL 8.5-10 .1 Not Available [facility] (Lab Registration) [address] [place], [address], 12/01/2022 17:08:16 12/02/19 23 12/01/2022 COMP METAB OLIC PANEL bilirubin total 0.5 mg/dL 0.4-1. 5 Not Available [facility] (Lab Registration) [address] [place], [address], 12/01/2022 17:08:16 12/02/19 23 12/01/2022 COMP METAB OLIC PANEL AST (SGOT) 16 U/L 15-37 Not Available [facility] (Lab Registration) [address] [place], [address], 12/01/2022 17:08:16 12/02/19 23 12/01/2022 COMP METAB OLIC PANEL ALT (SGPT) 27 U/L 12-78 Not Available [facility] (Lab Registration) [address] [place], [address], 12/01/2022 17:08:16 12/02/19 23 12/01/2022 COMP METAB OLIC PANEL alk phosphatase 85 U/L 50-120 Not Available [facility] (Lab Registration) [address] [place], [address], 12/01/2022 17:08:16 12/02/19 23 12/01/2022 COMP METAB OLIC PANEL note Unles s other wilson noted testi ng perfo rmed at: [facility] [address] [place] [address] [phone] Pedro rees MD CLIA: [id number] Not Available [facility] (Lab Registration) [address] [place], [address], 12/01/2022 17:08:16 12/02/19 23 12/01/2022 LIPID PANEL triglyceride 267 mg/dL 20-200 high The Natio nal [employer] t[employer] am (NCEP ) has set the follo wing guide lines for Fasti ng Trigl yceri pepper: ROBERT L: <150 mg/dL BORDE RLINE HIGH: 150 - 199 mg/dL HIGH: 200 - 499 mg/dL VERY HIGH: > or =500 mg/dL Not Available [facility] (Lab Registration) [address] [place], [address], 12/01/2022 17:08:17 12/02/19 23 12/01/2022 LIPID PANEL cholesterol 177 mg/dL 0-200 The Natio nal [employer]ca t[employer]gr am (NCEP ) has set the follo wing guide lines for Fasti ng Shelbi stero l: MARI ABLE: <200 mg/dL BORDE RLINE HIGH: 200 - 239 mg/dL HIGH: > or =240 mg/dL Not Available [facility] (Lab Registration) [address] [place], [address], 12/01/2022 17:08:17 12/02/19 23 12/01/2022 LIPID PANEL HDL cholesterol 27 mg/dL 60- low The Natio nal [employer]ca t[employer]gr am (NCEP ) has set the follo wing guide lines for Fasti ng HDL Shelbi stero l: LOW HDL: <40 mg/dL ROBERT L: 40 - 60 mg/dL MARI ABLE: >60 mg/dL Not Available [facility] (Lab Registration) [address] [place], [address], 12/01/2022 17:08:17 12/02/19 23 12/01/2022 LIPID PANEL LDL calculated 97 mg/dL 100- low The [employer]io n[employer]ca t[employer]gr am (NCEP ) has set the follo wing guide lines for Fasti ng LDL Shelbi stero l: OPTIM AL: < 100 mg/dL LOW RISK: 100 - 129 mg/dL BORDE RLINE HIGH: 130 - 159 mg/dL HIGH: 160 - 189 mg/dL VERY HIGH: > or = 190 mg/dL Not Available [facility] (Lab Registration) [address] [place], [address], 12/01/2022 17:08:17 12/02/19 23 12/01/2022 LIPID PANEL chol/HDL ratio 7 ratio -5 high Not Available [facility] (Lab Registration) [address] [place], [address], 12/01/2022 17:08:17 12/02/19 23 12/01/2022 LIPID PANEL note Clarisa s other wilson noted testi ng perfo rmed at: [facility] [address] [place] [address] [phone] Pedro rees MD CLIA: [id number] Not Available [facility] (Lab Registration) [address] [place], [address], 12/01/2022 17:08:17 12/02/19 23 12/01/2022 HEMOG LOBIN A1C glycosylated hemoglobin A1C 5.4 % 4.5-6. 2 Not Available [facility] (Lab Registration) [address] [place], [address], 12/01/2022 17:08:20 12/02/19 23 12/01/2022 HEMOG LOBIN A1C estimated average glucose 108 mg/dL 82-131 Not Available [facility] (Lab Registration) [address] [place], [address], 12/01/2022 17:08:20 12/02/19 23 12/01/2022 HEMOG LOBIN A1C note Jaimees s other wilson noted testi ng perfo rmed at: [facility] [address] [place] [address] [phone] Pedro rees MD CLIA: [id number] Not Available [facility] (Lab Registration) [address], [place], [address], 12/01/2022 17:08:20 01/05/20 23 01/04/2023 CBC AUTO W DIFF WBC 9.5 10 4.5-11 .5 Not Available [facility] (Lab Registration) [address] [place], [address], 01/04/2023 08:34:51 01/05/20 23 01/04/2023 CBC AUTO W DIFF RBC 5.00 10 4.25-5 .57 Not Available [facility] (Lab Registration) [address] [place], [address], 01/04/2023 08:34:51 01/05/20 23 01/04/2023 CBC AUTO W DIFF HGB 14.2 g/dL 12.0-1 5.7 Not Available [facility] (Lab Registration) [address] [place], [address], 01/04/2023 08:34:51 01/05/20 23 01/04/2023 CBC AUTO W DIFF HCT 41.0 % 36.0-4 7.0 Not Available [facility] (Lab Registration) [address] [place], [address], 01/04/2023 08:34:51 01/05/20 23 01/04/2023 CBC AUTO W DIFF MCV 82.0 fL 80-95 Not Available [facility] (Lab Registration) [address] [place], [address], 01/04/2023 08:34:51 01/05/20 23 01/04/2023 CBC AUTO W DIFF MCH 28.4 pg 27.0-3 4.0 Not Available [facility] (Lab Registration) [address] [place], [address], 01/04/2023 08:34:51 01/05/20 23 01/04/2023 CBC AUTO W DIFF MCHC 34.6 g/dL 32.0-3 6.0 Not Available [facility] (Lab Registration) [address] [place], [address], 01/04/2023 08:34:51 01/05/20 23 01/04/2023 CBC AUTO W DIFF platelet count 335 10 150-45 0 Not Available [facility] (Lab Registration) [address] [place], [address], 01/04/2023 08:34:51 01/05/20 23 01/04/2023 CBC AUTO W DIFF RDW 13.0 % 12.3-1 5.1 Not Available [facility] (Lab Registration) [address] [place], [address], 01/04/2023 08:34:51 01/05/20 23 01/04/2023 CBC AUTO W DIFF MPV 9.9 fL 7.4-10 .4 Not Available [facility] (Lab Registration) [address] [place], [address], 01/04/2023 08:34:51 01/05/20 23 01/04/2023 CBC AUTO W DIFF granulocyte% 65.6 % 40-75 Not Available [facility] (Lab Registration) [address] [place], [address], 01/04/2023 08:34:51 01/05/20 23 01/04/2023 CBC AUTO W DIFF lymphocyte% 26.0 % 15-57 Not Available [facility] (Lab Registration) [address] [place], [address], 01/04/2023 08:34:51 01/05/20 23 01/04/2023 CBC AUTO W DIFF monocyte% 5.2 % 4.0-12 .0 Not Available [facility] (Lab Registration) [address] [place], [address], 01/04/2023 08:34:51 01/05/20 23 01/04/2023 CBC AUTO W DIFF eosinophil% 2.5 % 0.0-4. 0 Not Available [facility] (Lab Registration) [address] [place], [address], 01/04/2023 08:34:51 01/05/20 23 01/04/2023 CBC AUTO W DIFF basophil% 0.5 % 0.0-1. 0 Not Available [facility] (Lab Registration) [address] [place], [address], 01/04/2023 08:34:51 01/05/20 23 01/04/2023 CBC AUTO W DIFF immature granulocytes % 0.2 % 0.0-0. 8 Not Available [facility] (Lab Registration) [address] [place], [address], 01/04/2023 08:34:51 01/05/20 23 01/04/2023 CBC AUTO W DIFF granulocyte# 6.24 10 Not Available [facility] (Lab Registration) [address] [place], [address], 01/04/2023 08:34:51 01/05/20 23 01/04/2023 CBC AUTO W DIFF lymphocyte# 2.48 10 Not Available [facility] (Lab Registration) [address] [place], [address], 01/04/2023 08:34:51 01/05/20 23 01/04/2023 CBC AUTO W DIFF monocyte# 0.50 10 Not Available [facility] (Lab Registration) [address] [place], [address], 01/04/2023 08:34:51 01/05/20 23 01/04/2023 CBC AUTO W DIFF eosinophil# 0.24 10 Not Available [facility] (Lab Registration) [address] [place], [address], 01/04/2023 08:34:51 01/05/20 23 01/04/2023 CBC AUTO W DIFF basophil# 0.05 10 Not Available [facility] (Lab Registration) [address] [place], [address], 01/04/2023 08:34:51 01/05/20 23 01/04/2023 CBC AUTO W DIFF immature granulocytes # 0.02 10 Not Available [facility] (Lab Registration) [address] [place], [address], 01/04/2023 08:34:51 01/05/20 23 01/04/2023 CBC AUTO W DIFF manual differential NO Not Available [facility] (Lab Registration) [address] [place], [address], 01/04/2023 08:34:51 01/05/20 23 01/04/2023 CBC AUTO W DIFF note Unles s other wilson noted testi ng perfo rmed at: [facility] [address] [place] [address] [phone] Pedro rees MD CLIA: [id number] Not Available [facility] (Lab Registration) [address] [place], [address], 01/04/2023 08:34:51 01/05/2001/04/2023 PT (PROT HROMB IN TIME) W INR PT (prothrombin time) 10.3 secon ds 9.3-11 .4 Not Available [facility] (Lab Registration) [address] [place], [address], 01/04/2023 08:43:53 01/05/2001/04/2023 PT (PROT HROMB IN TIME) W INR INR 0.97 0.9-1. 1 INR is inten ded to be used only for patie nts on stabl e oral anti- coagu lant thera py. *Ther apeut ic Range s 2.0 - 3.0 Usual Thera peuti c Range 2.5 - 3.5 For patie nts with a histo ry of multi ple deep vein throm bus or mecha nical heart valve s. Not Available [facility] (Lab Registration) [address], [place], [address], 01/04/2023 08:43:53 01/05/20 23 01/04/2023 PT (PROT HROMB IN TIME) W INR note Unles s other wilson noted testi ng perfo rmed at: [facility] [address] [place] [phone] Pedro rees MD CLIA: [id number] Not Available [facility] (Lab Registration) [address] [place], [address], 01/04/2023 08:43:53 01/05/20 23 01/04/2023 PTT (PART IAL THROM B TIME) PTT (partial thromb time) 26.1 secon ds 24.5-3 2.8 Not Available [facility] (Lab Registration) [address] [place], [address], 01/04/2023 08:43:54 01/05/20 23 01/04/2023 PTT (PART IAL THROM B TIME) note Unles s other wilson noted testi ng perfo rmed at: [facility] [address] [place] [address] [phone] Pedro rees MD CLIA: [id number] Not Available [facility] (Lab Registration) [address] [place], [address], 01/04/2023 08:43:54 01/05/20 23 01/04/2023 URINE PREGN BABS TEST urine test NEGATI VE negati ve Not Available [facility] (Lab Registration) [address] [place], [address], 01/04/2023 08:57:38 01/05/20 23 01/04/2023 URINE PREGN BABS TEST internal control PASS PASS Not Available [facility] (Lab Registration) [address], [place], [address], 01/04/2023 08:57:38 01/05/20 23 01/04/2023 URINE PREGN BABS TEST note Unles s other wilson noted testi ng perfo rmed at: [facility] [address] [place] [place] [address] [phone] Pedro rees MD CLIA: [id number] Not Available [facility] (Lab Registration) [address], [place], [address], 01/04/2023 08:57:38 01/05/20 23 01/04/2023 COMP METAB OLIC PANEL sodium 143 mmol/ L 136-14 5 Not Available [facility] (Lab Registration) [address], [place], [address], 01/04/2023 08:58:45 01/05/20 23 01/04/2023 COMP METAB OLIC PANEL potassium 4.0 mmol/ L 3.5-5. 1 Not Available [facility] (Lab Registration) [address] [place], [address], 01/04/2023 08:58:45 01/05/20 23 01/04/2023 COMP METAB OLIC PANEL chloride 106 mmol/ L 98-107 Not Available [facility] (Lab Registration) [address] [place], [address], 01/04/2023 08:58:45 01/05/20 23 01/04/2023 COMP METAB OLIC PANEL carbon dioxide 25 mmol/ L 21-32 Not Available [facility] (Lab Registration) [address] [place], [address], 01/04/2023 08:58:45 01/05/20 23 01/04/2023 COMP METAB OLIC PANEL anion gap 12.0 Not Available [facility] (Lab Registration) [address] [place], [address], 01/04/2023 08:58:45 01/05/20 23 01/04/2023 COMP METAB OLIC PANEL glucose 96 mg/dL 70-110 Not Available [facility] (Lab Registration) [address] [place], [address], 01/04/2023 08:58:45 01/05/20 23 01/04/2023 COMP METAB OLIC PANEL blood urea nitrogen 10 mg/dL 7-18 Not Available [facility] (Lab Registration) [address] [place], [address], 01/04/2023 08:58:45 01/05/20 23 01/04/2023 COMP METAB OLIC PANEL creatinine 0.8 mg/dL 0.6-1. 0 Not Available [facility] (Lab Registration) [address] [place], [address], 01/04/2023 08:58:45 01/05/20 23 01/04/2023 COMP METAB OLIC PANEL BUN/creatini ne ratio 12.5 ratio 9-21 Not Available [facility] (Lab Registration) [address] [place], [address], 01/04/2023 08:58:45 01/05/20 23 01/04/2023 COMP METAB OLIC PANEL estimated glom filtration rate 91 mL/mi n >60- Not Available [facility] (Lab Registration) [address] [place], [address], 01/04/2023 08:58:45 01/05/20 23 01/04/2023 COMP METAB OLIC PANEL total protein 7.4 g/dL 6.4-8. 2 Not Available [facility] (Lab Registration) [address] [place], [address], 01/04/2023 08:58:45 01/05/20 23 01/04/2023 COMP METAB OLIC PANEL albumin 3.8 g/dL 3.4-5. 0 Not Available [facility] (Lab Registration) [address] [place], [address], 01/04/2023 08:58:45 01/05/20 23 01/04/2023 COMP METAB OLIC PANEL calcium 9.1 mg/dL 8.5-10 .1 Not Available [facility] (Lab Registration) [address] [place], [address], 01/04/2023 08:58:45 01/05/20 23 01/04/2023 COMP METAB OLIC PANEL corrected calcium 9.3 mg/dL 8.5-10 .1 Not Available [facility] (Lab Registration) [address] [place], [address], 01/04/2023 08:58:45 01/05/20 23 01/04/2023 COMP METAB OLIC PANEL bilirubin total 0.4 mg/dL 0.4-1. 5 Not Available [facility] (Lab Registration) [address] [place], [address], 01/04/2023 08:58:45 01/05/20 23 01/04/2023 COMP METAB OLIC PANEL AST (SGOT) 18 U/L 15-37 Not Available [facility] (Lab Registration) [address] [place], [address], 01/04/2023 08:58:45 01/05/20 23 01/04/2023 COMP METAB OLIC PANEL ALT (SGPT) 20 U/L 12-78 Not Available [facility] (Lab Registration) [address] [place], [address], 01/04/2023 08:58:45 01/05/20 23 01/04/2023 COMP METAB OLIC PANEL alk phosphatase 95 U/L 50-120 Not Available [facility] (Lab Registration) [address] [place], [address], 01/04/2023 08:58:45 01/05/20 23 01/04/2023 COMP METAB OLIC PANEL note Unles s other wilson noted testi ng perfo rmed at: [facility] [address] [place] [address] [phone] Pedro rees MD CLIA: [id number] Not Available [facility] (Lab Registration) [address] [place], [address], 01/04/2023 08:58:45 12/07/19 23 12/06/2022 NM, hepat obili aria scan, w/ [facility] [address] [facility] [place] [address] Phone: Fax: Name: CHARLA OVALLES Exam Date: 12/07/19 23 : 995 Age 27 Gender : F Access ion: [id number] Physic cira: AMBURG EY, TAFFAN Y Facili ty: [facility] Facili ty HSV: Outpat ient Exam: NM HIDA WITH EFFRAC TION HEPATO BILIAR Y SCAN HISTOR Y: Right upper quadra nt abdomi nal pain. TECHNI QUE: Follow ing intrav enous admini strati on of approx imatel y 5.32 mCi of TC Cholet ec, multip le scinti graphi c images were obtain ed. FINDIN GS: The hepati c parenc hymal phase shows homoge neous distri bution of tracer throug hout the liver. Prompt appear ance of tracer is noted in the intrah epatic and extrah epatic biliar y system s. The gallbl adder visual izes normal ly. Biliar y to bowel transi t is within normal limits . Gallbl adder ejecti on fracti on is calcul ated at 17%. IMPRES LIZETTE: Abnorm al low gallbl adder ejecti on fracti on. Correl ate for biliar y dyskin esia. The films were review ed, interp reted, and dictat ed by Dr. Rodriguez Transc ribed by Cassius Ramos PA-C Dictat ed By: KAYLA RODRIGUEZ Transc ribed By: KAYLA RODRIGUEZ Transc ribed On: 12/07/19 1:26 PM Electr onical ly signed by: KAYLA RODRIGUEZ 12/07/19 Thank you for referr ing CHARLA OVALLES to [facility]. Legall y authen ticate d by POPE KAYLA Mccall DO 12-06 13:26: 08 CC'ed Logic: Orderi ng Provid er: AMBURG EY TAFFAN Y CC Provid er: AMBURG EY TAFFAN Y Attend ing Provid er: AMBURG EY TAFFAN Y Referr ing Provid er: AMBURG EY TAFFAN Y Admitt ing Provid er: AMBURG EY TAFFAN Y [facility] (Radiology) [address] [place] [address] [place], [address], 12/13/2022 08:18:59 Result Notes Documentation Provider Name and Address Organization Details Recorded Time Nm, Hepatobiliary Scan, W/ Cck : [address] [place] [address] Name: ANG OVALLES Exam Date: 12/06/2022 : 1995 Age 27 Gender: F Physician: ALLA VALENCIA Facility: [facility] Facility HSV: Outpatient Exam: NM HIDA WITH EFFRACTION HEPATOBILIARY SCAN HISTORY: Right upper quadrant abdominal pain. TECHNIQUE: Following intravenous administration of approximately 5.32 mCi of TC Choletec, multiple scintigraphic images were obtained. FINDINGS: The hepatic parenchymal phase shows homogeneous distribution of tracer throughout the liver. Prompt appearance of tracer is noted in the intrahepatic and extrahepatic biliary systems. The gallbladder visualizes normally. Biliary to bowel transit is within normal limits. Gallbladder ejection fraction is calculated at 17%. IMPRESSION: Abnormal low gallbladder ejection fraction. Correlate for biliary dyskinesia. The films were reviewed, interpreted, and dictated by Dr. Rodriguez Transcribed by Josette Ramos PA-C Dictated By: KAYLA RODRIGUEZ Transcribed By: KAYLA RODRIGUEZ Transcribed On: 12/06/2022 1:26 PM Electronically signed by: KAYLA RODRIGUEZ 12/06/2022 Thank you for referring ANG OVALLES to [facility]. Legally authenticated by POPE KAYLA Mccall DO 2022-12-06 13:26:08 CC'ed Logic: Ordering Provider: ERIK GOLD CC Provider: ERIK GOLD Attending Provider: ERIK GOLD Referring Provider: ERIK GOLD Admitting Provider: ERIK GOLD Nm, Hepatobiliary Scan, W/ Cck : please call and advise low gallbladder function. work on limiting fatty foods in diet; weight management. if continues to be painful after lifestyle changes recommend seeing general surgeon. Dolores moore, [place] - [facility] [place] [facility] [place] 12/13/2022 08:18:59 Problems Name Problem SNOMED Code Status Onset Date Resolution Date Notes Provider Name and Address Organization Details Recorded Time Heartburn 96296422 Active 023 Dolores moore, [place] [facility] [place] [facility] [place] 3 11:49:33 Seasonal allergy 936759482 Active 023 Dol[place] [facility] [place] [facility] [place] 3 11:49:40 Diarrhea 47255521 Active 023 Dolores [place]ore, [place] [facility] [place] [facility] [place] 3 11:50:05 Primary insomnia 5005988 Active 023 Dol[place]ore[place] [facility] [place] [facility] [place] 3 11:50:15 Anxiety 71959863 Active 023 Dolores moore, [place] [facility] [place] [facility] [place] 3 11:50:23 Problem Notes None recorded. Procedures Surgical History Date Name Laterality Status Provider Name and Address Organization Details Recorded Time Tonsillectomy completed Dolores Evangelista [facility] [place] [facility] [place] 12/01/2022 11:51:44 extraction of wisdom tooth completed Dolores Evangelista [facility] [place] [facility] [place] 12/01/2022 11:51:55 Imaging Results None recorded. Procedure Notes None recorded. Medical Equipment None Reported. Allergies Allergen ID Allergen Name Allergen Category Reaction Reaction Severity Criticality Documentation Date Start Date Code Code System Note Provider Name and Address Organization Details Recorded Time 955342 diphenhyd ramine medicatio n Not available Not available Not available 09/18/2024 3498 RxNorm SOB Jayna moore, [place] Evangelista [facility] & [place] 5 10:32:32 71738 Product containin g penicilli n (product) medicatio n Not available Not available Not available 12/01/2022 05362 8001 SNOMED SOB Jayna moore, [place] Evangelista [facility] & [place] 5 10:32:39 20627 Keflex medicatio n Not available Not available Not available 12/01/202215227 7 RxNorm Dolores moore, [place] Jean Carlos [facility] & [place] 3 11:46:29 Medications Name Sig Start Date Stop Date Status Note LastModified by Organization Details LastModified Time cyclobenzap rine 10 mg tablet Take 1 tablet by mouth twice daily as needed 2022 active Not Available Not Available Not Avai lable hydroxyzine HCl 50 mg tablet TAKE 1 TABLET BY MOUTH THREE TIMES DAILY NEEDED active Not Available Not Available No t Available valacyclovi r 500 mg tablet Take 1 tablet twice a day by oral route for 7 days. 12/20 completed Not Available Not Available Not Available lamotrigine 25 mg tablet TAKE 2 TABLETS BY MOUTH ONCE DAILY AT BEDTIME active Not Available Not Available No t Available oxycodone-a cetaminophe n 5 mg-325 mg tablet TAKE 1 TABLET BY MOUTH EVERY 8 HOURS FOR 3 DAYS active Not Available Not Available No t Available famotidine 20 mg tablet Take 1 tablet every day by oral route for 90 days. 2022 active Not Available Not Available Not Avai lable benzonatate 100 mg capsule TAKE 1 CAPSULE BY MOUTH THREE TIMES DAILY NEEDED FOR COUGH 12/01 completed Not Available Not Available Not Available methylpredn isolone 4 mg tablets in a dose pack TAKE DIRECTED BY MOUTH 12/01 completed Not Available Not Available Not Available fluoxetine 20 mg capsule Take 1 capsule by mouth once daily active Not Available Not Available No t Available dicyclomine 10 mg capsule TAKE 1 CAPSULE BY MOUTH TWICE DAILY WITH MEALS NEEDED . APPOINTME NT REQUIRED FOR FUTURE REFILLS active Not Available Not Available No t Available Allergy Relief (cetirizine ) 10 mg tablet TAKE 1 TABLET BY MOUTH ONCE DAILY active Not Available Not Available No t Available Paxlovid 300 mg (150 mg x 2)-100 mg tablets in a dose pack TAKE 3 TABLETS TOGETHER (TWO 150 MG NIRMATREL VIR TABLETS AND ONE 100 MG RITONAVIR TABLET) BY MOUTH TWICE DAILY FOR 5 DAYS. 09/02 completed Not Available Not Available Not Available Vitals Date Recorded Body height Body mass index (BMI) Body weight Body temperature Oxygen saturation Oxygen saturation in Arterial blood by Pulse oximetry Heart rate Systolic blood pressure Diastolic blood pressure Provider Name and Address Organization Details Last Updated DateTime 3 167.64 cm 34.1 kg/m2 37893.9 9 g 97.1 [degF] 99 % 99 % 95 /min 121 mm[Hg] 77 mm[Hg] Dolores ARANDA [facility] & [place] 3 11:45:44 Date Recorded Body height Body mass index (BMI) Body weight Heart rate Oxygen saturation Oxygen saturation in Arterial blood by Pulse oximetry Body temperature Respiratory rate Systolic blood pressure Diastolic blood pressure Provider Name and Address Organization Details Last Updated DateTime 3 167.64 cm 33.6 kg/m2 81578.2 1 g 78 /min 96 % 96 % 98.6 [degF] 18 /min 107 mm[Hg] 70 mm[Hg] Jono ARANDA [facility] & [place] 3 09:52:34 Date Recorded Body height Body mass index (BMI) Body weight Heart rate Oxygen saturation Oxygen saturation in Arterial blood by Pulse oximetry Body temperature Respiratory rate Systolic blood pressure Diastolic blood pressure Provider Name and Address Organization Details Last Updated DateTime 3 167.64 cm 33.2 kg/m2 43002.0 3 g 103 /min 97 % 97 % 98.6 [degF] 18 /min 120 mm[Hg] 80 mm[Hg] Jono ARANDA [facility] & [place] 3 09:31:47 Date Recorded Body height Body mass index (BMI) Body weight Heart rate Oxygen saturation Oxygen saturation in Arterial blood by Pulse oximetry Systolic blood pressure Diastolic blood pressure Provider Name and Address Organization Details Last Updated DateTime 3 167.64 cm 33.6 kg/m2 59598.9 3 g 81 /min 97 % 97 % 108 mm[Hg] 72 mm[Hg] Jade Gutierrez [facility] & [place] 3 11:21:07 Social History Question Answer Notes LastModified by [employer] Details LastModified Time Tobacco Smoking Status Current Every Day Smoker Dolores Rendon null, [facility] & [place] 12/01/2022 11:51:27 What Is Your Level Of Caffeine Consumption? Occasional Information not available 12/01/2022 What Was The Date Of Your Most Recent Tobacco Screening? 12/01/2022 Information not available 12/01/2022 How Much Tobacco Do You Smoke? 0.25 PPD Information not available 12/01/2022 Has Tobacco Cessation Counseling Been Provided? No Information not available 12/01/2022 Sex: Unknown Functional Status Question Answer Note LastModified by [employer] Details LastModified Time Do you use any illicit or recreational drugs? No Information not available 12/01/2022 Do you or have you ever used any other forms of tobacco or nicotine? No Information not available 12/01/2022 What is your level of alcohol consumption? None Information not available 12/01/2022 Mental Status None recorded. Family History Relationship Description Onset Age of this Age Resolved Age Notes LastModified by Organization Details LastModified Time Mother Essential hypertension [email or web address] Not available 11:50:54 Mother Depressive disorder [email or web address] Not available 2024 10:30:24 Mother Diabetes mellitus [email or web address] Not available 2024 10:30:35 Mother Migraine [email or web address] Not available 09/18/2024 10:30:45 Father Essential hypertension [email or web address] Not available 11:50:54 Medical History Condition Response Anxiety Disorder Y Allergies/Hayfever Y Reflux/GERD Y Gynecological HistoryNo gynecological history recorded. Obstetrics History GPAL:G 0 P 0 0 0 0 Immunizations Vaccine Type Date Status Note Provider Eriberto diamond and Address Organization Details Recorded Time IPV 0 completed Dolores Rendon null, [place] [facility] & [place] 12/01/2022 11:46:01 MMR 0 completed Dolores Rendon null, [place] [facility] & [place] 12/01/2022 11:46:01 varicella 7 completed Dolores Rendon null, [place] [facility] & [place] 12/01/2022 11:46:01 Influenza, split virus, trivalent, preservative 7 completed Dolores Rendon null, [place] [facility] & [place] 12/01/2022 11:46:01 Influenza, split virus, trivalent, preservative 7 completed Dolores Rendon null[place] [facility] & [place] 12/01/2022 11:46:01 Influenza, split virus, trivalent, preservative 9 completed Dolores Rendon null, [place] [facility] & [place] 12/01/2022 11:46:01 HPV, quadrivalent 7 completed Dolores Rendon null, [place] [facility] & [place] 12/01/2022 11:46:01 HPV, quadrivalent 7 completed Dolores Rendon null[place] [facility] [place] 12/01/2022 11:46:01 HPV, quadrivalent 9 completed Dolores Rendon null, [place] [facility] [place] 12/01/2022 11:46:01 DTaP, unspecified formulation 0 completed Dolores Rendon null, [place] [facility] & [place] 12/01/2022 11:46:01 meningococcal MCV4, unspecified formulation 7 completed Dolores Rendon null, [place] [facility] & [place] 12/01/2022 11:46:01 Influenza, split virus, quadrivalent, PF 0 completed Dolores Rendon null, [place] [facility] [place] 12/01/2022 11:46:01 Past Encounters Encounter ID Performer Location Encounter Start Date Encounter Closed Date Diagnosis/Indication Diagnosis SNOMED-CT Code Diagnosis ICD10 Code Diagnosis Note [id number] ALLA VALENCIA NP [id number] [address] [address] 12/01/2022 11:17:39 12/01/2022 12:10:49 Mood disorder 92191238 F39 controlled with medication denies SI/HI Anxiety 20722934 F41.9 continue medication as neededcont rolled Depressive disorder 3548 9007 F32.A controlled with medication Denies SI/HIgood support system Urgent pepper kevin for stool 55718970 R15.2 discussed food triggers, be aware of what eating to see if triggers Irregular bowel habits 721567244 R19.4 discussed increased fluid intake and dietary fiber Abdominal pain 19401406 R10.9 awaiting HIDA scanER if any urgent signs or symptoms arise Gastroesop hageal reflux disease 517706379 K21.9 continue with medication Avoid spicy foods, carbonated beverages, lying down 30 minutes to 1 hour after eatingEat smaller portion sizesTake medication s as prescribed Weight management Hyperglycemia 90025540 R 73.9 reinforced diet and lifestyle changes Body mass index 30+ - obesity 483687465 Z68.34 Hyperlipid emia screening 204179714 Z13.220 Patient advised to exercise, eat a prudent diet and lose weight as appropriat e. [id number] Gregory Valdez MD [facility] [address] [place], [place] [address] [address] 12/20/2022 09:30:24 12/20/2022 13:25:05 Dyskinesia of gallbladder 955077643 K82.8 [id number] Gregory Valdez MD [facility] [address] [place], [place] [address]Jo[place] [address] 01/10/2023 09:13:24 01/11/2023 08:07:29 Postoperative visit 076047761 Z09 [id number] Gregory Valdez MD [facility] [address] [place], [place] [address]Jo[place] [address] 01/17/2023 11:19:48 01/17/2023 12:51:46 Postoperative visit 374372637 Z09 Health Concerns Section Related Observation LastModified by Organization Samuelmegan ls LastModified Time None Recorded Concern Status LastModified by Organization Details LastModified Time None Recorded Advance Directives Directive None Recorded Payers Insurance Date Sequence Insurance Name Policy Number Policy Chopra Covered Member ID Chopra Member ID Guarantor Name 09/19/2024 1 *SELF PAY* Na lemer Ovalles 12/20/2022 1 PASSPORT BY [employer] (MEDICAID REPLACEMENT - HMO) [id number] Ang Ovalles [id number] Ang Ovalles 12/20/2022 1 [place] Ang Ovalles [id number] Ang Ovalles 09/19/2024 1 [employer] [facility] (MEDICAID HMO) Ang Ovalles [id number] Ang Ovalles Notes Date Note Type Note Provider Name and Address Organization Details Recorded Time 12/01/2022 text/html 27 yr old female who presents for follow up. Has been 1 year since last visit. She feels like dicyclomine not working; every time eats still rushing to the bathroom, occasionally loose, other times hard. Denies any vomiting, blood in stool. Unsure of triggers. Family in room concerned with her sugar, as hungry all the time and when she doesnt eat she gets hernandez.Needs refills on medications.denies SI/HI; was stable till ran out of medications but controlled when on medications. Good support system. ALLA VALENCIA NP [address] [place] [address], [id number] [address] [place] 12/01/2022 12:06:42 12/20/2022 text/html 27-year-old vladimir rivas patient comes to the office with complaints of right upper quadrant pain radiating to the back on and off in the past few weeks. She refers that before this she really did not have any problems. Her her PCP who worked her up and found in a HIDA CCK that she has a 17% ejection fraction. Which of course is compatible with gallbladder dyskinesia. Previous surgery a Pfannenstiel type incision. She is alert oriented in no distress blood pressure 107/7097% O2 sat at room air 78 heart rate and 98.4 F temperature. She is allergic to penicillin. See medication list. She is alert oriented in no distress and no abdominal pain today abdomen is soft previous scar of . Rest of exam noncontributory at this time. Gregory Valdez MD [address] [facility], [place], [address], [facility] & [place] 12/20/2022 10:00:37 01/10/2023 text/html Patient is post laparoscopic cholecystectomy last Tuesday. patient's incisions look great no cellulitis and no drainage. No pain. And no tenderness. Healing better than expected. Vital signs are stable afebrile. No complaints. Gregory Valdez MD [address] [facility], [place], [address], [facility] [[email or web address] - [facility] [place] 01/10/2023 09:44:54 01/17/2023 text/html 27-year-old fema le patient had surgery 01/04/2023 comes today for removal of her wade and evaluation of her wounds. Temperature 98.2 F pulse 81 O2 saturations 97% on room air and her blood pressure is 108/72. Alert oriented in no distress. And no abdominal pain. Gregory Valdez MD [address] [facility], [place], [address], [facility] [[email or web address]] - [facility] & [place] 01/17/2023 11:36:31 OBGyn Episode No OBEpisode recorded.
[2025-02-18 20:22] VITALS: BP 113/85; PULSE 91; RESP 16; TEMP 37.1; O2SAT 98; BMI 28.5
--- NOTE | 2025-02-18 20:43 | HMH.EDGENADL ---
Discharge Plan Disposition Patient Disposition: Home, Self-Care Condition: Good Prescriptions Prescriptions: New amoxicillin-pot clavulanate 875-125 mg tablet 1 tab PO BID 7 Days Qty: 14 0RF No Action terconazole 0.8 % cream 5 g VAGINAL HS 3 Days Qty: 20 0RF Rx Instructions: apply as directed Gummies 400 mcg-35 mg- 25 mg-5 mg tablet,chewable 1 tab PO DAILY Qty: 90 3RF pantoprazole 40 mg tablet,delayed release (DR/EC) 40 mg PO DAILY Patient Comments: TAKE 1 TABLET BY MOUTH ONCE DAILY cetirizine 10 mg tablet 10 mg PO DAILY Patient Comments: TAKE 1 TABLET BY MOUTH ONCE DAILY fluoxetine 20 mg capsule 20 mg PO DAILY Qty: 30 11RF famotidine 20 mg tablet See Rx Instructions .ROUTE .COMPLEX Qty: 30 6RF Dose Instruction: Take 1 tablet by mouth once daily Rx Instructions: Take 1 tablet by mouth once daily methylprednisolone 4 MG tablet 4 mg PO DIRECTED Qty: 21 0RF Rx Instructions: Take as directed on package instructions benzonatate 100 MG capsule 100 mg PO TID PRN (Reason: Cough) Qty: 15 0RF fluticasone propionate 120 SPR/BOT bottle 1 spr intranasal DAILY Qty: 1 0RF Rx Instructions: One spray in each nostril daily benzonatate [benzonatate] 100 mg capsule 100 mg PO TIDP PRN (Reason: Cough) Qty: 30 0RF methylprednisolone 4 mg Tablets,Dose Pack 4 mg PO DIRECTED Qty: 21 0RF Paxlovid 300 mg (150 mg x 2)-100 mg tablet See Rx Instructions .ROUTE .COMPLEX Qty: 30 0RF Rx Instructions: take TWO 150 mg tablets of nirmatrelvir with ONE 100 mg tablet of ritonavir twice daily for 5 days Referrals Follow up/Referrals: Michael Peña APRN [Primary Care Provider, Medical] - See instructions Activity Restrictions/Add. Instructions Additional Instructions/Restrictions: Please follow-up with your dentist in the upcoming days/weeks, please return to the emergency department with any worsening signs or symptoms, please utilize ibuprofen Tylenol ice, please take your antibiotic with food as prescribed. Clinical Impressions Clinical Impression: Pain, dental Instructions Patient Instructions: DI for Dental Pain Print Language Print Language: Anguillan Discharge ED Provider: Christofer Troncoso General Adult HPI <GITA Funk - Last Filed: 02/18/25 20:58> General Chief complaint: Skin/Abscess/Foreign Body Stated complaint: Left jaw swollen,? bad tooth Time Seen by Provider: 02/18/25 20:05 Mode of Arrival: Ambulatory Source of Information: Patient Description of Symptoms (Recalled from ER Triage Doc. by RN): Pt presents with pain to left lower jaw line with swelling that began approx 1 day ago. Pt reports it feels like there is a blister there Pt denies fevers at home. History of Present Illness HPI narrative: 29-year-old female presents to the emergency department with left dental pain/left jaw swelling, that has been going on for less than 24 hours/last night, denies any fever chills chest pain shortness of breath nausea vomiting, no constipation no diarrhea no urinary type otology no sore throat, no cough congestion, patient has a dentist who she regular follows up with, has data deficient history of dental caries/poor dentition, patient states she has had this previously, patient is a current everyday smoker, denies any alcohol, does admit to occasional marijuana use, initial triage vitals are grossly unremarkable, takes no other medication at home, has no other relevant past medical history with the exception of anxiety/depression. She tells me that it feels like there is a blister there . Onset (ago): hour(s) Related Data Home Medications ?Medication ?Instructions ?Recorded ?Confirmed pantoprazole 40 mg tablet,delayed 40 mg PO DAILY acid reflux 07/14/20 04/28/22 release cetirizine 10 mg tablet 10 mg PO DAILY allergies 11/12/20 04/28/22 Previous Rx's ?Medication ?Instructions ?Recorded PNV 153-FA 400 mcg-om3 35 mg-dha 1 tab PO DAILY Supplement #90 tabs 07/29/20 25 mg-epa 5 mg-fish oil chew tablet ( Gummies) fluoxetine 20 mg capsule 20 mg PO DAILY Depression #30 caps 09/29/20 terconazole 0.8 % vaginal cream 5 g vaginal HS 3 days #20 grams 02/13/21 benzonatate 100 mg capsule 100 mg PO TID PRN Cough #15 caps 07/02/21 fluticasone propionate 50 1 spr intranasal DAILY #1 ea 07/02/21 mcg/actuation nasal spray,suspension methylprednisolone 4 mg tablet 4 mg PO DIRECTED #21 tabs 07/02/21 famotidine 20 mg tablet See Rx Instructions .Route 02/09/22 .COMPLEX #30 tabs benzonatate 100 mg capsule 100 mg PO TIDP PRN Cough #30 caps 08/03/22 methylprednisolone 4 mg tablets in 4 mg PO DIRECTED #21 tabs 08/03/22 a dose pack nirmatrelvir 300 mg (150 mg See Rx Instructions PO .COMPLEX 08/03/22 x2)-ritonavir 100 mg tablet,dose #30 tabs pack (Paxlovid) amoxicillin 875 mg-potassium 1 tab PO BID 7 days #14 tabs 02/18/25 clavulanate 125 mg tablet Allergies Allergy/AdvReac Type Severity Reaction Status Date / Time orange Allergy Intermediate mouth sores Verified 08/03/22 20:32 Penicillins Allergy Intermediate mouth sores Verified 08/03/22 20:32 [facility] <GITA Funk - Last Filed: 02/18/25 20:58> [facility] Disclaimer: The information contained in this section may have been updated after the patient was seen, as this information can be updated by other users. Medical History Anxiety Depression Surgical History Hx of section Hx of tonsillectomy Social History Smoking Status: Current every day smoker tobacco type: cigarettes packs per day: 1 alcohol intake: never substance use type: marijuana current occupational status: unemployed Travel in the last 8 weeks?: None household members: family housing: house Have you lived/traveled outside US in past 30 days?: No Contact w/someone who lives/traveled outside US past 30 days?: No Exposure to someone with infectious disease in past 14 days?: No Do you have a fever (greater than 100.4 F or 38 C)?: No Have you tested positive for COVID-19?: No Exposed to someone with COVID-19 in past 14 days?: No Do you have a sore throat?: No Do you have a cough?: No Do you have any weakness?: No Do you have any diarrhea?: No Are you experiencing any unusual bleeding?: No Do you have any muscle aches/pain?: No Do you have any abdominal pain?: No Are you experiencing loss of taste or smell?: No Other Medical History Have you received the Flu Vaccine for this season: No Have you received the Pneumonia Vaccine: No <GITA Funk - Last Filed: 02/18/25 20:58> ROS Obtained: Yes All systems reviewed & no additional complaints except as documented Physical Exam <GITA Funk - Last Filed: 02/18/25 20:58> General General appearance: alert and in no apparent distress Head Head exam: atraumatic and normocephalic Eye Eye exam: Present PERRL and EOMI ENT ENT exam: Present normal exam, normal oropharynx, mucous membranes moist and other (There are some mild left-sided facial swelling, with no overlying facial cellulitis, no erythema, dental caries noted throughout the dental space, numerous poor dentition areas, no periodontal abscess, no periapical abscess notable for drainage, uvula is midline, no peritonsillar abscess,) Expanded ENT Exam Mouth exam: Present normal external inspection and other (Dental caries most notable on third molar on the left back tooth); Absent drooling, trismus, lip swelling, tongue elevation or tongue swelling Teeth exam: Present dental caries Neck Neck exam: Present normal inspection Chest Chest inspection: Present normal inspection and symmetric chest wall rise Respiratory Respiratory exam: Present normal lung sounds bilaterally; Absent respiratory distress Cardiovascular Cardiovascular exam: Present regular rate and normal rhythm Abdominal Exam Abdominal exam: Present soft; Absent tenderness Extremities Exam Extremities exam: Present normal inspection Neurological Exam Neurological exam: Present alert and oriented X3 Psychiatric Psychiatric exam: Present normal affect Skin Skin exam: Present warm and dry Medical Decision Making <GITA Funk - Last Filed: 02/18/25 20:58> Medical Records Medical records reviewed: Yes I reviewed the patient's medical records. Screening: Per USPSTF and CDC recommendations, given the prevalence of disease in our region, it is our hospital?s policy to screen for HIV and viral Hepatitis for all patients aged 18 and over and those with ongoing risk factors. Rene Inquiry Pt receiving controlled substance: No Rene was queried for this patient: No Vital Signs: 02/18/25 20:22 Temperature 98.7 F Temperature Source Oral Pulse Rate [Radial] 91 H Respiratory Rate 16 Blood Pressure [Left Arm] 113/85 Blood Pressure Mean [Left Arm] 94 Blood Pressure Position [Left Arm] Sitting 02 Sat by Pulse Oximetry 98 Oxygen Delivery Method Room Air Orders (Tests/Meds): ED MEDICATIONS Discontinued Medications Generic Name Dose Route Start Last Admin Trade Name Freq PRN Reason Stop Dose Admin Ketorolac Tromethamine 15 mg 02/18/25 20:41 Ketorolac 30mg/Ml Vial IM 02/18/25 20:42 ONCE ONE Lidocaine HCl 15 ml 02/18/25 20:42 Lidocaine 2% Viscous Shirlene 15ml Udc PO 02/18/25 20:43 ONCE ONE Medical Decision Narrative: 29-year-old female presents the emergency department with left-sided dental pain, differential diagnose include but not limited to peritonsillar abscess, periapical abscess, dental caries among others. I discussed patient case with attending physician Will give tooth ball, 15 mg IM Toradol, patient has localized dental space infection, no signs or symptoms to be consistent with Huan's angina, trismus, no drooling, no overlying facial cellulitis, peridental abscess or periapical abscess to be clinical drainage here in the emergency department, patient has ongoing/dental follow-up that she is pursuing, I recommend she continue this, I will prescribe Augmentin 875 mg p.o. twice daily for 7 days. Patient voiced understanding and agreed with treatment plan/discharge plan, patient was given strict ED return precautions. Patient follow-up with dentist as directed. <Christofer Troncoso MD - Last Filed: 02/18/25 21:03> Vital Signs: 02/18/25 20:22 Temperature 98.7 F Temperature Source Oral Pulse Rate [Radial] 91 H Respiratory Rate 16 Blood Pressure [Left Arm] 113/85 Blood Pressure Mean [Left Arm] 94 Blood Pressure Position [Left Arm] Sitting 02 Sat by Pulse Oximetry 98 Oxygen Delivery Method Room Air Orders (Tests/Meds): ED MEDICATIONS Discontinued Medications Generic Name Dose Route Start Last Admin Trade Name Freq PRN Reason Stop Dose Admin Ketorolac Tromethamine 15 mg 02/18/25 20:41 Ketorolac 30mg/Ml Vial IM 02/18/25 20:42 ONCE ONE Lidocaine HCl 15 ml 02/18/25 20:42 Lidocaine 2% Viscous Shirlene 15ml Udc PO 02/18/25 20:43 ONCE ONE Medical Decision Narrative: 29-year-old female presents the emergency department with left-sided dental pain, differential diagnose include but not limited to peritonsillar abscess, periapical abscess, dental caries among others. I discussed patient case with attending physician Will give tooth ball, 15 mg IM Toradol, patient has localized dental space infection, no signs or symptoms to be consistent with Huan's angina, trismus, no drooling, no overlying facial cellulitis, peridental abscess or periapical abscess to be clinical drainage here in the emergency department, patient has ongoing/dental follow-up that she is pursuing, I recommend she continue this, I will prescribe Augmentin 875 mg p.o. twice daily for 7 days. Patient voiced understanding and agreed with treatment plan/discharge plan, patient was given strict ED return precautions. Patient follow-up with dentist as directed. I was consulted by the AGUSTIN, and we discussed the complexity of the problems being addressed. I approved the treatment and management plan for this patient's care in the Emergency Department, thus performing a substantive portion of the medical decision making. Christofer Troncoso MD Critical Care <GITA Funk - Last Filed: 02/18/25 20:58> Critical Care Time Critical Care Time: No
[2025-02-18] MEDS: LIDOCAINE 2% VISCOUS SOL 15ML UDC 15 ML PO (21:06)
[2025-02-18] MEDS: KETOROLAC 30MG/ML VIAL 15 MG IM (21:06)
[2025-02-18 21:07] VITALS: BP 113/85; PULSE 89; RESP 18; TEMP 37
--- NOTE | 2025-02-18 21:15 | ED_ITS ---
Discharge Plan Disposition Patient Disposition: Home, Self-Care Condition: Good Prescriptions Prescriptions: New clindamycin HCl [Cleocin HCl] 150 mg capsule 450 mg PO Q8H Qty: 30 0RF No Action terconazole 0.8 % cream 5 g VAGINAL HS 3 Days Qty: 20 0RF Rx Instructions: apply as directed Gummies 400 mcg-35 mg- 25 mg-5 mg tablet,chewable 1 tab PO DAILY Qty: 90 3RF pantoprazole 40 mg tablet,delayed release (DR/EC) 40 mg PO DAILY Patient Comments: TAKE 1 TABLET BY MOUTH ONCE DAILY cetirizine 10 mg tablet 10 mg PO DAILY Patient Comments: TAKE 1 TABLET BY MOUTH ONCE DAILY fluoxetine 20 mg capsule 20 mg PO DAILY Qty: 30 11RF famotidine 20 mg tablet See Rx Instructions .ROUTE .COMPLEX Qty: 30 6RF Dose Instruction: Take 1 tablet by mouth once daily Rx Instructions: Take 1 tablet by mouth once daily methylprednisolone 4 MG tablet 4 mg PO DIRECTED Qty: 21 0RF Rx Instructions: Take as directed on package instructions benzonatate 100 MG capsule 100 mg PO TID PRN (Reason: Cough) Qty: 15 0RF fluticasone propionate 120 SPR/BOT bottle 1 spr intranasal DAILY Qty: 1 0RF Rx Instructions: One spray in each nostril daily benzonatate [benzonatate] 100 mg capsule 100 mg PO TIDP PRN (Reason: Cough) Qty: 30 0RF methylprednisolone 4 mg Tablets,Dose Pack 4 mg PO DIRECTED Qty: 21 0RF Paxlovid 300 mg (150 mg x 2)-100 mg tablet See Rx Instructions .ROUTE .COMPLEX Qty: 30 0RF Rx Instructions: take TWO 150 mg tablets of nirmatrelvir with ONE 100 mg tablet of ritonavir twice daily for 5 days Referrals Follow up/Referrals: Michael Peña APRN [Primary Care Provider, Medical] - See instructions Activity Restrictions/Add. Instructions Additional Instructions/Restrictions: Please follow-up with your dentist in the upcoming days/weeks, please return to the emergency department with any worsening signs or symptoms, please utilize ibuprofen Tylenol ice, please take your antibiotic with food as prescribed. Clinical Impressions Clinical Impression: Pain, dental Instructions Patient Instructions: DI for Dental Pain Print Language Print Language: Vietnamese Discharge ED Provider: Christofer Troncoso General Adult HPI <GITA Funk - Last Filed: 02/18/25 21:18> General Chief complaint: Skin/Abscess/Foreign Body Stated complaint: Left jaw swollen,? bad tooth Time Seen by Provider: 02/18/25 20:05 Mode of Arrival: Ambulatory Source of Information: Patient Description of Symptoms (Recalled from ER Triage Doc. by RN): Pt presents with pain to left lower jaw line with swelling that began approx 1 day ago. Pt reports it feels like there is a blister there Pt denies fevers at home. History of Present Illness Onset (ago): hour(s) Related Data Home Medications ?Medication ?Instructions ?Recorded ?Confirmed pantoprazole 40 mg tablet,delayed 40 mg PO DAILY acid reflux 07/14/20 04/28/22 release cetirizine 10 mg tablet 10 mg PO DAILY allergies 06/2504/28/22 Previous Rx's ?Medication ?Instructions ?Recorded PNV 153-FA 400 mcg-om3 35 mg-dha 1 tab PO DAILY Supple ment #90 tabs 07/29/20 25 mg-epa 5 mg-fish oil chew tablet ( Gummies) fluoxetine 20 mg capsule 20 mg PO DAILY Depression #3 0 caps 09/29/20 terconazole 0.8 % vaginal cream 5 g vaginal HS 3 days #20 grams 02/13/21 benzonatate 100 mg capsule 100 mg PO TID PRN Cough #15 caps 07/02/21 fluticasone propionate 50 1 spr intranasal DAILY #1 ea 07/02/21 mcg/actuation nasal spray,suspension methylprednisolone 4 mg tablet 4 mg PO DIRECTED #21 tabs 07/02/21 famotidine 20 mg tablet See Rx Instructions .Route 0 02/09/22 .COMPLEX #30 tabs benzonatate 100 mg capsule 100 mg PO TIDP PRN Cough #3 0 caps 08/03/22 methylprednisolone 4 mg tablets in 4 mg PO DIRECTED #21 tabs 08/03/22 a dose pack nirmatrelvir 300 mg (150 mg See Rx Instructions PO .CO MPLEX 08/03/22 x2)-ritonavir 100 mg tablet,dose #30 tabs pack (Paxlovid) clindamycin HCl 150 mg capsule 450 mg (3 x 150 mg) PO Q8H #30 caps 02/18/25 (Cleocin HCl) Allergies Allergy/AdvReac Type Severity Reaction Status Date / Time orange Allergy Intermediate mouth sores Verified 08/03/22 20:32 Penicillins Allergy Intermediate Difficulty Verified 02/18/25 21:15 Breathing PFSH <GITA Funk - Last Filed: 02/18/25 21:18> [facility] Disclaimer: The information contained in this section may have been updated after the patient was seen, as this information can be updated by other users. Medical History Anxiety Depression Surgical History Hx of section Hx of tonsillectomy Social History Smoking Status: Current every day smoker tobacco type: cigarettes packs per day: 1 alcohol intake: never substance use type: marijuana current occupational status: unemployed Travel in the last 8 weeks?: None household members: family housing: house Have you lived/traveled outside US in past 30 days?: No Contact w/someone who lives/traveled outside US past 30 days?: No Exposure to someone with infectious disease in past 14 days?: No Do you have a fever (greater than 100.4 F or 38 C)?: No Have you tested positive for COVID-19?: No Exposed to someone with COVID-19 in past 14 days?: No Do you have a sore throat?: No Do you have a cough?: No Do you have any weakness?: No Do you have any diarrhea?: No Are you experiencing any unusual bleeding?: No Do you have any muscle aches/pain?: No Do you have any abdominal pain?: No Are you experiencing loss of taste or smell?: No Other Medical History Have you received the Flu Vaccine for this season: No Have you received the Pneumonia Vaccine: No <GITA Funk - Last Filed: 02/18/25 21:18> ROS Obtained: Yes All systems reviewed & no additional complaints except as documented Physical Exam <GITA Funk - Last Filed: 02/18/25 21:18> General General appearance: alert and in no apparent distress Respiratory Respiratory exam: Present normal lung sounds bilaterally Cardiovascular Cardiovascular exam: Present regular rate Neurological Exam Neurological exam: Present alert Medical Decision Making <GITA Funk - Last Filed: 02/18/25 21:18> Medical Records Screening: Per USPSTF and CDC recommendations, given the prevalence of disease in our region, it is our hospital?s policy to screen for HIV and viral Hepatitis for all patients aged 18 and over and those with ongoing risk factors. Rene Inquiry Pt receiving controlled substance: No Vital Signs: 02/18/25 20:22 02/18/25 21:07 Temperature 98.7 F 98.6 F Temperature Source Oral Oral Pulse Rate 89 Pulse Rate [Radial] 91 H Respiratory Rate 16 18 Blood Pressure 113/85 Blood Pressure [Left Arm] 113/85 Blood Pressure Mean [Left Arm] 94 Blood Pressure Source Automatic Cuff Blood Pressure Position [Left Arm] Sitting 02 Sat by Pulse Oximetry 98 Oxygen Delivery Method Room Air Room Air Orders (Tests/Meds): ED MEDICATIONS Discontinued Medications Generic Name Dose Route Start Last Admin Trade Name Freq PRN Reason Stop Dose Admin Ketorolac Tromethamine 15 mg 02/18/25 20:41 02/18/25 21:06 Ketorolac 30mg/Ml Vial IM 02/18/25 20:42 15 mg ONCE ONE Administration Lidocaine HCl 15 ml 02/18/25 20:42 02/18/25 21:06 Lidocaine 2% Viscous Shirlene 15ml Udc PO 02/18/25 20:43 15 ml ONCE ONE Administration Medical Decision Narrative: Was notified by nursing staff upon discharge the patient did have anaphylaxis/allergic reaction to Augmentin/penicillins in the past, thus will change patient's p.o. antibiotic prescription to clindamycin 450 milligram every 8 for 7 days. <Christofer Troncoso MD - Last Filed: 02/19/25 15:37> Vital Signs: 02/18/25 20:22 02/18/25 21:07 Temperature 98.7 F 98.6 F Temperature Source Oral Oral Pulse Rate 89 Pulse Rate [Radial] 91 H Respiratory Rate 16 18 Blood Pressure 113/85 Blood Pressure [Left Arm] 113/85 Blood Pressure Mean [Left Arm] 94 Blood Pressure Source Automatic Cuff Blood Pressure Position [Left Arm] Sitting 02 Sat by Pulse Oximetry 98 Oxygen Delivery Method Room Air Room Air Orders (Tests/Meds): ED MEDICATIONS Discontinued Medications Generic Name Dose Route Start Last Admin Trade Name Freq PRN Reason Stop Dose Admin Ketorolac Tromethamine 15 mg 02/18/25 20:41 02/18/25 21:06 Ketorolac 30mg/Ml Vial IM 02/18/25 20:42 15 mg ONCE ONE Administration Lidocaine HCl 15 ml 02/18/25 20:42 02/18/25 21:06 Lidocaine 2% Viscous Shirlene 15ml Udc PO 02/18/25 20:43 15 ml ONCE ONE Administration Medical Decision Narrative: Was notified by nursing staff upon discharge the patient did have anaphylaxis/allergic reaction to Augmentin/penicillins in the past, thus will change patient's p.o. antibiotic prescription to clindamycin 450 milligram every 8 for 7 days. I was consulted by the AGUSTIN, and we discussed the complexity of the problems being addressed. I approved the treatment and management plan for this patient's care in the Emergency Department, thus performing a substantive portion of the medical decision making. Christofer Troncoso MD Critical Care <GITA Funk - Last Filed: 02/18/25 21:18> Critical Care Time Critical Care Time: No
== END 2025-02-18 21:24 | disposition home or self-care (01) ==
PROVIDERS: Emergency Provider Emergency Medicine; PCP Nurse Practitioner Family
DX: R22.0 Localized swelling, mass and lump, head (principal); F17.210 Nicotine dependence, cigarettes, uncomplicated; K08.89 Other specified disorders of teeth and supporting structures
CPT/HCPCS: 96372; 99283; J1885